=== PATIENT | male | born 1945 | race African-American/Black ===

== ENCOUNTER 2018-12-23 07:26 | Day surgery (SDC) | payer MEDICARE ==
[2018-12-22 09:15] VITALS: BMI 29.9
--- NOTE | 2018-12-22 13:34 | HP ---
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 This has began when he was doing some shoveling and felt some discomfort. On exam, he was appreciated to have a left inguinal hernia on standing and increasing on Valsalva. His testicles are normal. Of note, he has had previous bilateral inguinal hernia repairs in the and . He does not recall whether mesh was used. Plan is for robot mesh repair for recurrent left inguinal hernia. He understands risks and benefits, consents. ALLERGIES: NONE. HABITS: Tobacco, none. Alcohol, none. MEDICATIONS: 1. Metoprolol/hydrochlorothiazide 100/25 one half pill daily. 2. Lipitor 40 mg a day. PAST SURGICAL HISTORY: Bilateral inguinal hernia repairs in 1964 and . He does not recall if mesh was used. PAST MEDICAL HISTORY: Chronic low back pain, hypertension, and elevated lipids. REVIEW OF SYSTEMS: Ten-point noncontributory. Cardiac, noncontributory. PHYSICAL EXAMINATION: VITAL SIGNS: Weight 211 pounds, 5 foot 11 inches, 29 BMI, blood pressure 143/83, heart rate 79, temperature 97.2 degrees. HEAD, EYES, EARS, NOSE, AND THROAT: Unremarkable. LUNGS: Clear to auscultation. CARDIAC: Regular rate and rhythm. No murmur or gallop. ABDOMEN: Soft and nontender. Scars in both groins from past bilateral inguinal hernia repairs. EXTREMITIES: Unremarkable. No ankle edema. : Testicles normal bilaterally. On standing, right groin hernia repair intact. Left groin reveals hernia on standing, increases in the Valsalva. ASSESSMENT AND PLAN: Left inguinal hernia recurrent. We would recommend robot mesh repair as outpatient. Risks of infection, bleeding, reoperation, blood transfusion, chronic pain discussed, questions answered. Job ID: [id number]
[2018-12-23] MEDS ORDERED: Ketorolac Tromethamine 30 MG/ML VIAL ONE (08:21)
[2018-12-23 08:52] LABS: #Eosinphils 0.1 thou/uL (0.0-0.7); #Lymphocytes 1.6 thou/uL (1.20-3.40); #Monocytes 0.5 thou/uL (0.11-0.59); #Neutrophils 3.5 thou/uL (1.40-6.50); %Basophils 0.3 % (0.0-1.0); %Eosinophils 1.5 % (0.0-10.0); %Lymphocytes 27.6 % (21.0-51.0); %Monocytes 9.1 % (0.0-10.0); %Neutrophils 61.4 % (42.0-75.0); Mean Corpuscular HGB CONC 33.5 g/dL (32.0-36.0); Mean Corpuscular Hemoglobin 28.7 pg (27.0-31.0); Mean Corpuscular Volume 85.7 fL (78.0-98.0); Mean Platelet Volume 7.5 fL (7.4-10.4); Platelet Count 169 thou/uL (130-400); RBC Distribution Width 13.3 % (11.5-14.5); Red Blood Cell (RBC) Count 5.22 mill/uL (4.70-6.10); White Blood Cell (WBC) Count 5.7 thou/uL (4.8-10.8)
[2018-12-23 09:11] LABS: Anion Gap 10 mmol/L (10-20); BUN (Urea Nitrogen) 13 mg/dL (8.4-25.7); Calc. Creatinine Clearance 89 mL/min (70-130); Calcium 9.1 mg/dL (7.8-10.44); Carbon Dioxide 26 mmol/L (23-31); Chloride 106 mmol/L (98-107); Estimated GFR-MDRD 85; Glucose 108 mg/dL (83-110); Potassium 3.6 mmol/L (3.5-5.1); Sodium 138 mmol/L (136-145)
[2018-12-23] MEDS ORDERED: Fentanyl 100 MCG/2 ML VIAL ONE (10:10)
[2018-12-23] MEDS ORDERED: Bupivacaine HCl 0.5%/Epinephrine 1:200,000/PF 30 ml Vial ONE (10:13)
--- NOTE | 2018-12-23 18:13 | OP ---
DATE OF PROCEDURE: 12/23/2018 PREOPERATIVE DIAGNOSIS: Recurrent left inguinal hernia. POSTOPERATIVE DIAGNOSIS: Recurrent left inguinal hernia. PROCEDURE PERFORMED: Robotic large mesh repair, 3DMax, recurrent left inguinal hernia. ANESTHESIA: Local 0.5% Marcaine with epinephrine 30 mL. ANESTHESIA: General. Ugarte catheter was placed at the beginning and removed at the end. 180 mL left in the bladder to facilitate discharge. DESCRIPTION OF PROCEDURE: The patient was taken to the operating room, where under general anesthesia, abdomen was clipped of hair, prepared with ChloraPrep, and draped in routine fashion. Ugarte catheter was placed at the beginning of the procedure and removed at the end. Local 0.5% Marcaine was infiltrated in the skin and subcutaneous tissue about each port side. Left of midline supraumbilical incision was made and pneumoperitoneum to 15 mmHg was obtained with a Veress needle, replaced with an 11-mm balloon port. Laparoscope was inserted. Remainder of ports placed under laparoscopic visualization. Left and right lateral abdomen incision was made and 8-mm port was placed. Robot was docked and prepared, and robotic inguinal hernia undertaken. Attention was turned to the left groin, where clinically he had recurrent left inguinal hernia, where left inguinal hernia recurrence was acknowledged. Mesh was not visualized on either side. Incision was made from the anterior iliac spine laterally until medially on the left, dissecting the peritoneal flap, dissecting free down to the retroperitoneum, dissecting the hernia sac and lipoma of the cord free. Once this was cleared for about 8 cm in the retroperitoneum, visualizing the cord structures in his testicular artery abnormalities. After this dissection was complete and Sedrick ligament was identified, the 3DMax large mesh was inserted along with sutures and mesh properly positioned, securing the mesh to Sedrick ligament with 2-0 Vicryl and to the anterior abdominal wall to the left of the epigastric vessel using 2-0 Vicryl suture. Good hemostasis was noted, and as all counts were correct, peritoneum was reapproximated with continuous suture of 2-0 V-Loc suture. Once this was completed, there was a small defect through the peritoneum, closed with a [id number] suture of 3-0 Vicryl. Sutures and needles were removed. Good hemostasis was noted. Pneumoperitoneum was reduced. All instruments were removed. All skin incisions were approximated with interrupted subdermal 4-0 Monocryl and [place]-glue applied. Job ID: [id number]
--- NOTE | 2018-12-24 09:20 | EKG ---
Test Reason : PREOP Blood Pressure : / mmHG Vent. Rate : 064 BPM Atrial Rate : 064 BPM P-R Int : 150 ms QRS Dur : 090 ms QT Int : 422 ms P-R-T Axes : 073 038 042 degrees QTc Int : 435 ms Normal sinus rhythm Nonspecific T wave abnormality Abnormal ECG No previous ECGs available Confirmed by THONY JORDAN, DR. Soto ([id number]) on 12/24/2018 9:19:55 AM Referred By: NEREIDA Confirmed By:DR. Brittany BHANDARI MD
== END 2018-12-23 15:30 | disposition home or self-care (01) ==
LOC: SDC 07:26
PROVIDERS: ATTEND Specialist
PROC: 0YU64JZ Supplement Left Inguinal Region with Synthetic Substitute, Percutaneous Endoscopic Approach (ICD-10-PCS; principal; 2018-12-23)
DX: K40.91 Unilateral inguinal hernia, without obstruction or gangrene, recurrent (principal); I10 Essential (primary) hypertension; E78.5 Hyperlipidemia, unspecified; G89.29 Other chronic pain; M54.5 Low back pain; Z79.899 Other long term (current) drug therapy; Z98.890 Other specified postprocedural states
CPT/HCPCS: 49651; 80048; 85025; 93005; C1781; 36415; 93010; J0131; J0670; J0690; J1885; J3010

== ENCOUNTER 2019-09-21 11:13 | Inpatient (IN) | payer MEDICARE ==
[2019-09-21] MEDS ORDERED: Ondansetron PF 4 MG/2 ML Vial ONE (11:49)
[2019-09-21] MEDS ORDERED: Piperacillin/Tazobactam 4.5 GM VIAL ONE (11:49)
[2019-09-21] MEDS ORDERED: Morphine 4 MG/ML VIAL ONE (11:49)
[2019-09-21 11:53] LABS: #Lymphocytes 0.6 thou/uL (1.20-3.40); #Monocytes 0.1 thou/uL (0.11-0.59); #Neutrophils 6.7 thou/uL (1.40-6.50); %Basophils 0.1 % (0.0-1.0); %Eosinophils 0.1 % (0.0-10.0); %Lymphocytes 8.2 % (21.0-51.0); %Monocytes 1.2 % (0.0-10.0); %Neutrophils 90.6 % (42.0-75.0); Hemoglobin 16.2 g/dL (14.0-18.0); Mean Corpuscular HGB CONC 33.3 g/dL (32.0-36.0); Mean Corpuscular Hemoglobin 28.7 pg (27.0-31.0); Mean Corpuscular Volume 86.2 fL (78.0-98.0); Mean Platelet Volume 7.9 fL (7.4-10.4); Platelet Count 157 thou/uL (130-400); RBC Distribution Width 13.3 % (11.5-14.5); Red Blood Cell (RBC) Count 5.63 mill/uL (4.70-6.10); White Blood Cell (WBC) Count 7.3 thou/uL (4.8-10.8)
[2019-09-21 12:16] LABS: ALT (SGPT) 20 U/L (8-55); AST (SGOT) 27 U/L (5-34); Albumin 3.9 g/dL (3.4-4.8); Alkaline Phosphatase 72 U/L (40-110); Anion Gap 15 mmol/L (10-20); BUN (Urea Nitrogen) 16 mg/dL (8.4-25.7); Bilirubin, Total 0.9 mg/dL (0.2-1.2); Calc. Creatinine Clearance 0 mL/min (70-130); Calcium 8.9 mg/dL (7.8-10.44); Carbon Dioxide 22 mmol/L (23-31); Chloride 103 mmol/L (98-107); Estimated GFR-MDRD 81; Globulin 3.6 g/dL (2.4-3.5); Glucose 120 mg/dL (83-110); Lipase 28 U/L (8-78); Potassium 3.8 mmol/L (3.5-5.1); Protein, Total 7.5 g/dL (5.8-8.1); Sodium 136 mmol/L (136-145)
--- NOTE | 2019-09-21 12:17 | RAD ---
Chest AP view INDICATION: Altered mental status COMPARISON: None FINDINGS: Lungs: Low lung volumes Cardiac silhouette: The cardiomediastinal silhouette appears within normal limits. Pulmonary vasculature: Normal Pleural spaces: No pleural effusion or pneumothorax is demonstrated. Upper abdomen: No abnormality seen. Osseous structures: No acute osseous abnormality. Additional findings: None. IMPRESSION: Low lung volumes. No definite acute abnormality.
--- NOTE | 2019-09-21 12:46 | CT ---
CT OF THE ABDOMEN AND PELVIS WITH IV CONTRAST INDICATION: Abdominal Pain COMPARISON: None FINDINGS: ABDOMEN: Lung bases: There is bibasilar atelectasis Liver: There is a 6 mm hypodensity within the segments of the right hepatic lobe that cannot be furth er characterize. No additional focal hepatic lesion is evident. Gallbladder: Mildly distended Pancreas: Normal. Adrenal glands: Normal. Spleen: Normal. Kidneys and ureters: Normal. No hydronephrosis. Vasculature: There are moderate vascular calcifications seen involving the visualized vasculature. Lymph nodes:No lymphadenopathy. Free fluid in abdomen:Small amount of free fluid is seen within the lower abdomen and pelvis PELVIS: Small and large bowel: There is scattered colonic diverticula. There is a mild edematous changes invo lving the omentum. There is mild suggested wall thickening involving portions of the sigmoid colon. Appendix:Normal Bladder: Normal. Rectal and perirectal soft tissues:Normal. Reproductive structures: Prostate is mildly enlarged measuring 5.4 cm Free fluid in pelvis: Mild free fluid in the pelvis Lymphadenopathy pelvis: No lymphadenopathy is evident. Osseous structures: Prostate no fracture there is a remote appearing superior endplate compression fr acture of L2. There is scattered degenerative and osteoarthritic changes. Soft tissues:Normal. IMPRESSION: 1. Nonspecific mild free fluid in the abdomen and pelvis with some mild edematous changes involving t he omentum. 2. Colonic diverticulosis with mild suggested wall thickening involving the sigmoid colon. A componen t of mild colitis cannot be entirely excluded. 3. Too small to characterize right hepatic lobe hypodensity.
--- NOTE | 2019-09-21 13:15 | PDOC.FPRHP ---
- History of Present Illness Chief Complaint: abdominal pain History of Present Illness: This is a 74yo M who presented to the ER with a CC of abdominal pain that started earlier today. Reports pain is 6/10 and worse in the lower abdomen. Reports pain is constant since this morning at 5am. He endorses nausea and vomiting x 4 today. No blood noted in emesis. Denies any blood in stool. Patient states he had a colonoscopy 3-4years ago that showed polyps that were non cancerous. He also noted that they found diverticula on that colonoscopy too. Endorses fever/chills. Denies changes in urine. Denies diarrhea and constipation. Had a BM this morning that was normal. Denies chest pain, palpitations, SOB, LE edema, vision changes. Denies changes in appetite. ED Course: 1L NS, 4.5g zosyn, 8mg morphin, 8mg zofran CT showing wall thickening in sigmoid colon, diverticulosis CXR nml - Allergies/Adverse Reactions Allergies Allergy/AdvReac Type Severity Reaction Status Date / Time No Known Allergies Allergy Verified 12/22/18 09:15 - Home Medications Medication Instructions Recorded Confirmed Type Atorvastatin Calcium [Lipitor] 1 tab PO HS 12/22/18 09/21/19 History Metoprolol/Hydrochlorothiazide 0.5 tab PO DAILY 12/22/18 09/21/19 History [Metoprolol-Hctz 100-25 mg Tab] - History PMHx: HLD, HTN PSHx: Hernia surgery FHx: Mom - BP Social: Denies tobacco or drug use; occasional alcohol use; previous cigarette smoker - 1pack/day for 40 years - Review of Systems General: denies: fever/chills, weight/appetite/sleep changes, night sweats, fatigue Eyes: denies: vision changes ENT: denies: nasal congestion Respiratory: denies: cough, congestion, shortness of breath, exercise intolerance Cardiovascular: denies: chest pain, palpitation, edema Gastrointestinal: reports: nausea, vomiting, abdominal pain (crampy-like). denies: diarrhea, constipation Genitourinary: denies: dysuria Skin: denies: rashes Musculoskeletal: denies: pain Neurological: denies: weakness - Vital signs BP: 130/74, Pulse: 119, Resp: 27, Pain: 6, O2 sat: 94 on (Room Air), Time: 2019 12:02. Weight 100kg BP: 115/86, Pulse: 123, Resp: 28, Temp: 98.2 (Oral), Pain: 6, O2 sat: 94 on ( Room Air), Time: 09/21/2019 11:24. - Physical Exam Constitutional: NAD, awake, alert and oriented, well developed HEENT: normocephalic and atraumatic, PERRLA, EOMI, grossly normal vision, grossly normal hearing, MMM Neck: supple Chest: no-tender to palpation Heart: RRR, normal S1/S2, no murmurs/rubs/gallops Lungs: CTAB, no respiratory distress, good air movement, no wheezing, no retractions Abdomen: soft -Abdomen: TTP in RLQ/LLQ, rebound tenderness, neg bruner sign Musculoskeletal: normal structure Neurological: no focal deficit Skin: no rash/lesions, good turgor, capillary refill <2 seconds Heme/Lymphatic: no unusual bruising or bleeding, no purpura, no petechia Psychiatric: normal mood and affect FMR H&P: Results - Labs Result Diagrams: 09/21/19 11:39 09/21/19 11:39 Lab results: WBC 7.3 thou/uL (4.8-10.8) 09/21/19 11:39 Hgb 16.2 g/dL (14.0-18.0) 09/21/19 11:39 Hct 48.5 % (42.0-52.0) 09/21/19 11:39 MCV 86.2 fL (78.0-98.0) 09/21/19 11:39 Plt Count 157 thou/uL (130-400) 09/21/19 11:39 Neutrophils % 90.6 % (42.0-75.0) H 09/21/19 11:39 Sodium 136 mmol/L (136-145) 09/21/19 11:39 Potassium 3.8 mmol/L (3.5-5.1) 09/21/19 11:39 Chloride 103 mmol/L (98-107) 09/21/19 11:39 Carbon Dioxide 22 mmol/L (23-31) L 09/21/19 11:39 BUN 16 mg/dL (8.4-25.7) 09/21/19 11:39 Creatinine 1.08 mg/dL (0.7-1.3) 09/21/19 11:39 Glucose 120 mg/dL (83-110) H 09/21/19 11:39 Lactic Acid 3.7 mmol/L (0.5-2.2) H 09/21/19 11:39 Calcium 8.9 mg/dL (7.8-10.44) 09/21/19 11:39 Total Bilirubin 0.9 mg/dL (0.2-1.2) 09/21/19 11:39 AST 27 U/L (5-34) 09/21/19 11:39 ALT 20 U/L (8-55) 09/21/19 11:39 Alkaline Phosphatase 72 U/L (40-110) 09/21/19 11:39 Serum Total Protein 7.5 g/dL (5.8-8.1) 09/21/19 11:39 Albumin 3.9 g/dL (3.4-4.8) 09/21/19 11:39 Lipase 28 U/L (8-78) 09/21/19 11:39 - Radiology Interpretation CT scan - abdomen Status: report reviewed by me (nonspecific mild free fluid in the abd and pelvis with some mild edematous changes involving the omentum; colonic diverticulosis with mild wall thickening involving the sigmoid colon) FMR H&P: A/P - Problem List (1) Diverticulosis of colon Current Visit: Yes Status: Acute Code(s): K57.30 - DVRTCLOS OF LG INT W/O PERFORATION OR ABSCESS W/O BLEEDING (2) Hyperlipidemia Current Visit: Yes Status: Acute Code(s): E78.5 - HYPERLIPIDEMIA, UNSPECIFIED - Plan 74 yo Male admitted for: Sepsis 2/2 Diverticulitis - fluid resuscitate - trend lactate - CT abdomen results as above. No evidence of perforation. Free fluid in abdomen. - 1st episode of diverticulitis. Medical mgmt - zosyn IVPB - zofran for nausea - tylenol for pain and fever - morphine IV for pain HTN - hold HTN meds today since hypotensive - resume when BP improves HLD - may continue statin Code: full Fluids: LR at VTE ppx: lovenox 40 GI ppx: pepcid bid IV Diet: NPO, meds w/ sips Disposition/LOS: admit to inpatient medical. LOS >48H. FMR H&P: Upper Level - Plan Date/Time: 09/21/19 1313 I, Kirsten Lisa MD, have evaluated this patient and agree with findings/plan as outlined by internet site designer resident. Pertinent changes/additions are listed here. HPI: this is a 74yo M with known colonic diverticula from a previous colonoscopy and CT performed here who presents to the ER with a CC of abdominal pain. Onset this morning at 5am, pain is crampy like, mostly in lower abd and associated with NV. He was able to keep down some fluid this morning. He endorses fever/chills. Denies constipation or diarrhea. Jonathan chest pain or palpitations. States that he has never had pain like this before. Denies any blood in his emesis or stool. Denies changes in appetite over the last few days. No hx of colon cancer in the family. Patient is a former smoker, occasional alcohol drinker. See internet site designer note for full HPI and histories. PE: General: mild distress due to pain Cardio: RRR, no murmurs Resp: CTAB Abd: minimal BS, TTP in lower abdomen R/LLQs MSK: FROM, no edema in LE Psych: Axox3 Plan: Sepsis 2/2 Diverticulitis, poa Patient tachycardic, tachypneic and elevated lactate on admission. CT showing wall thickening in the sigmoid colon, diverticula. Per patient, recent colonoscopy positive for diverticula and polyps. - admit to medical - Continue IVF, slightly above maintenance - LR @ 150ml/hr. Keep NPO with ice chips for now and can consider advancing as tolerated if pain subsides. - Continue morphine for pain control and switch to oral analgesics when capable - Continue zosyn IV q6hr - Blood and urine cx pending, procal pending - Tylenol PRN for fever HTN - aware, continue home meds; will continue to monitor HLD - aware, continue statin Code: Full Diet: NPO and advance as tolerated VTE: lovenox Dispo: admit to medical, inpt Case discussed with Dr. Centeno Addendum - Attending - Attending Attestation Date/Time: 09/21/19 9665 I personally evaluated the patient and discussed the management with the team. I agree with the History, Examination, Assessment and Plan documented above with any addition or exceptions noted below. The patient was joking with his SO when I arrived. Mild TTP in BLQ. Continue antibiotics, await cultures, monitor abd exam.
[2019-09-21] MEDS ORDERED: Acetaminophen 500 MG TAB ONE (13:34)
[2019-09-21] MEDS ORDERED: Ondansetron ODT 4 MG TAB PO PRN (13:50)
[2019-09-21 14:24] VITALS: BMI 30.9
[2019-09-21] MEDS ORDERED: Iopamidol-370 76% 500 ML 1 ML ONE (14:29)
[2019-09-21] MEDS ORDERED: Enoxaparin Sodium 40 MG/0.4 ML SYRINGE SC SCH (14:30)
[2019-09-21 14:45] LABS: Bilirubin Negative (Negative); Blood, Urine Negative (Negative); Clarity Clear (Clear); Glucose, Urine (Dipstick) Normal (Negative); Leukocyte Negative Leu/uL (Negative); Nitrite Negative (Negative); Protein, Urine (Dipstick) Negative (Neg-Trace); Urobilinogen Normal mg/dL (Less than 2)
[2019-09-21] MEDS ORDERED: Lactated Ringer's 1,000 ML IV SCH (15:15)
[2019-09-21 15:24] LABS: Lactic Acid 2.7 mmol/L (0.5-2.2)
[2019-09-21] MEDS: Lactated Ringer's 1,000 ML IV SCH ×2 (15:25→23:24)
[2019-09-21] MEDS: Acetaminophen 325 MG TAB PO PRN (15:28)
[2019-09-21] MEDS: Piperacillin/Tazobactam 3.375 GM in Sodium Chloride 0.9% 100 ML IVPB SCH ×2 (17:32→23:26)
[2019-09-21] MEDS: Famotidine/PF 20 mg/2ml Vial SLOW IVP SCH (20:09)
[2019-09-22] MEDS: Acetaminophen 325 MG TAB PO PRN ×4 (01:19→21:51)
[2019-09-22] MEDS: Piperacillin/Tazobactam 3.375 GM in Sodium Chloride 0.9% 100 ML IVPB SCH ×4 (05:13→23:31)
[2019-09-22] MEDS: Lactated Ringer's 1,000 ML IV SCH ×4 (05:13→23:31)
--- NOTE | 2019-09-22 05:34 | PDOC.FM ---
- Subjective Subjective: Patient doing well this morning. Tolerated fluids well last night. Discussed slowly advancing his diet today, patient agreeable. - Objective Vital Signs & Weight: Vital Signs (12 hours) Temp Pulse Resp BP Pulse Ox 09/22/19 04:15 97.8 F 76 18 96/60 93 L 09/22/19 00:33 98.5 F 78 18 98/62 96 09/21/19 22:37 94 L 09/21/19 19:34 99.3 F 95 18 90/58 L 94 L Weight Weight 100.698 kg Result Diagrams: 09/22/19 05:25 09/22/19 05:25 Phys Exam - Physical Examination Constitutional: NAD HEENT: moist MMs, sclera anicteric Neck: supple, full ROM Respiratory: no wheezing, clear to auscultation bilateral Cardiovascular: RRR, no significant murmur Gastrointestinal: soft, positive bowel sounds ttp throughout the abdomen Musculoskeletal: no edema, pulses present Neurological: normal sensation, moves all 4 limbs Lymphatic: no nodes Psychiatric: normal affect Skin: no rash, normal turgor Dx/Plan (1) Sepsis Code(s): A41.9 - SEPSIS, UNSPECIFIED ORGANISM Status: Acute (2) Diverticulitis Code(s): K57.92 - DVTRCLI OF INTEST, PART UNSP, W/O PERF OR ABSCESS W/O BLEED Status: Acute (3) Diverticulosis of colon Code(s): K57.30 - DVRTCLOS OF LG INT W/O PERFORATION OR ABSCESS W/O BLEEDING Status: Chronic (4) Hyperlipidemia Code(s): E78.5 - HYPERLIPIDEMIA, UNSPECIFIED Status: Chronic (5) HTN (hypertension) Code(s): I10 - ESSENTIAL (PRIMARY) HYPERTENSION Status: Acute - Plan Plan: 74M with PMHx of HTN and HLD admitted for: #Sepsis 2/2 Diverticulitis - fluid resuscitated - lactic 3.7>2.7 - CT abdomen results: non-specific mild free fluid, edematous changes in omentum , colonic diverticulosis with mild wall thickening in sigmoid colon. No evidence of perforation. - 1st episode of diverticulitis. Will continue medical management at this time - zosyn IVPB - zofran for nausea - tylenol for pain and fever - morphine IV for pain - will continue to advance diet as tolerated today. #HTN - continue to hold HTN meds today since hypotensive - resume when BP improves #HLD - continue statin Fluids: LR at 150ml/hr VTE ppx: lovenox 40 GI ppx: pepcid bid IV Diet: NPO, meds w/ sips Disposition: admitted to inpatient medical. Continue IVF and abx today. Will advance diet as tolerated Code: Full
[2019-09-22 05:54] LABS: Mean Corpuscular HGB CONC 33.3 g/dL (32.0-36.0); Mean Corpuscular Hemoglobin 28.9 pg (27.0-31.0); Mean Corpuscular Volume 86.6 fL (78.0-98.0); Platelet Count 138 thou/uL (130-400); RBC Distribution Width 13.4 % (11.5-14.5); White Blood Cell (WBC) Count 14.6 thou/uL (4.8-10.8)
[2019-09-22 06:10] LABS: Anion Gap 9 mmol/L (10-20); BUN (Urea Nitrogen) 17 mg/dL (8.4-25.7); Calc. Creatinine Clearance 80 mL/min (70-130); Calcium 7.8 mg/dL (7.8-10.44); Carbon Dioxide 26 mmol/L (23-31); Chloride 106 mmol/L (98-107); Estimated GFR-MDRD 74; Glucose 92 mg/dL (83-110); Potassium 3.8 mmol/L (3.5-5.1); Sodium 137 mmol/L (136-145)
[2019-09-22 06:22] LABS: Band 32 % (5-11); Lymphocytes 7 % (21-51); MDiff Complete? YES; Monocytes 4 % (0-10); Neutrophil 57 % (42-75); Platelet Morphology Comment Appears Adequate
[2019-09-22] MEDS: Enoxaparin Sodium 40 MG/0.4 ML SYRINGE SC SCH (08:32)
[2019-09-22] MEDS: Famotidine/PF 20 mg/2ml Vial SLOW IVP SCH ×2 (08:32→21:51)
--- NOTE | 2019-09-22 12:07 | PRG ---
DATE OF SERVICE: 09/22/2019 Mr. Gamboa is a pleasant 74-year-old man who was admitted with acute diverticulitis. He has been started on antibiotics and fluids and is feeling better. He is currently afebrile but slightly hypotensive. He is awake and alert. Job ID: [id number]
[2019-09-22] MEDS: Morphine 2 MG/ML SYRINGE SLOW IVP PRN (13:41)
[2019-09-23] MEDS: Acetaminophen 325 MG TAB PO PRN ×4 (04:08→20:19)
[2019-09-23] MEDS: Piperacillin/Tazobactam 3.375 GM in Sodium Chloride 0.9% 100 ML IVPB SCH (05:31)
--- NOTE | 2019-09-23 05:40 | PDOC.FM ---
- Subjective Subjective: Patient doing okay this morning. Tolerated full liquid diet well yesterday. Abdomen continues to be ttp throughout. He reports a few watery stools yesterday afternoon, with one well-formed stool yesterday morning. - Objective Vital Signs & Weight: Vital Signs (12 hours) Temp Pulse Resp BP Pulse Ox 09/23/19 04:54 99.9 F H 109 H 18 151/91 H 91 L 09/23/19 00:00 100.6 F H 108 H 20 132/83 93 L 09/22/19 20:00 100.6 F H 114 H 20 131/82 93 L Weight Weight 100.698 kg I&O: 09/21/19 09/22/19 09/23/19 06:59 06:59 06:59 Intake Total 1350 Balance 1350 Result Diagrams: 09/23/19 06:00 09/23/19 06:00 Phys Exam - Physical Examination Constitutional: NAD HEENT: moist MMs, sclera anicteric Neck: supple, full ROM Respiratory: no wheezing, clear to auscultation bilateral Cardiovascular: RRR, no significant murmur Gastrointestinal: soft ttp throughout, moreso on Left side Musculoskeletal: no edema, pulses present Neurological: non-focal, moves all 4 limbs Psychiatric: normal affect, A&O x 3 Skin: no rash, normal turgor Dx/Plan (1) Sepsis Code(s): A41.9 - SEPSIS, UNSPECIFIED ORGANISM Status: Acute (2) Diverticulitis Code(s): K57.92 - DVTRCLI OF INTEST, PART UNSP, W/O PERF OR ABSCESS W/O BLEED Status: Acute (3) Diverticulosis of colon Code(s): K57.30 - DVRTCLOS OF LG INT W/O PERFORATION OR ABSCESS W/O BLEEDING Status: Chronic (4) Hyperlipidemia Code(s): E78.5 - HYPERLIPIDEMIA, UNSPECIFIED Status: Chronic (5) HTN (hypertension) Code(s): I10 - ESSENTIAL (PRIMARY) HYPERTENSION Status: Acute - Plan Plan: 74M with PMHx of HTN and HLD admitted for: #Sepsis 2/2 Diverticulitis - fluid resuscitated - lactic 3.7>2.7>1.0 - CT abdomen results: non-specific mild free fluid, edematous changes in omentum , colonic diverticulosis with mild wall thickening in sigmoid colon. No evidence of perforation. - 1st episode of diverticulitis. Will continue medical management at this time - fever and some tachycardia overnight though clinical picture remains the same ; can consider re-imaging today if he does not improve - Blood cultures ngtd, will continue to follow - zosyn IVPB - zofran for nausea - tylenol for pain and fever - morphine IV for pain - will continue to advance diet as tolerated today. #HTN - BP has improved, will restart home meds today #HLD - continue statin Fluids: LR at 150ml/hr VTE ppx: lovenox 40 GI ppx: pepcid bid IV Diet: Full liquids Disposition: admitted to inpatient medical. Continue IVF and abx today. Will advance diet as tolerated Code: Full Addendum - Attending - Attending Attestation Date/Time: 09/23/19 [id number] I personally evaluated the patient and discussed the management with Dr. Hernandez. I agree with the History, Examination, Assessment and Plan documented above with any addition or exceptions noted below. Patient improved. Pain improved. COntinue abx for diverticulitis. Pain control and IV fluids as needed. Fever curve downtrending. Add diet once pain tolerable. Will restart BP meds to get tachycardia under control.
[2019-09-23 06:11] LABS: #Lymphocytes 0.7 thou/uL (1.20-3.40); #Monocytes 0.3 thou/uL (0.11-0.59); #Neutrophils 11.2 thou/uL (1.40-6.50); %Basophils 0.2 % (0.0-1.0); %Eosinophils 0.1 % (0.0-10.0); %Lymphocytes 5.5 % (21.0-51.0); %Monocytes 2.8 % (0.0-10.0); %Neutrophils 91.5 % (42.0-75.0); Hemoglobin 13.4 g/dL (14.0-18.0); Mean Corpuscular HGB CONC 33.7 g/dL (32.0-36.0); Mean Corpuscular Hemoglobin 29.3 pg (27.0-31.0); Mean Corpuscular Volume 86.9 fL (78.0-98.0); Platelet Count 127 thou/uL (130-400); RBC Distribution Width 13.2 % (11.5-14.5); Red Blood Cell (RBC) Count 4.59 mill/uL (4.70-6.10); White Blood Cell (WBC) Count 12.2 thou/uL (4.8-10.8)
[2019-09-23 06:32] LABS: Anion Gap 9 mmol/L (10-20); BUN (Urea Nitrogen) 10 mg/dL (8.4-25.7); Calc. Creatinine Clearance 97 mL/min (70-130); Calcium 8.4 mg/dL (7.8-10.44); Carbon Dioxide 24 mmol/L (23-31); Chloride 108 mmol/L (98-107); Estimated GFR-MDRD Greater than 90; Glucose 94 mg/dL (83-110); Potassium 3.7 mmol/L (3.5-5.1); Sodium 137 mmol/L (136-145)
[2019-09-23] MEDS: Lactated Ringer's 1,000 ML IV SCH ×4 (07:19→20:11)
[2019-09-23] MEDS: Famotidine/PF 20 mg/2ml Vial SLOW IVP SCH ×2 (08:23→20:10)
[2019-09-23] MEDS: Enoxaparin Sodium 40 MG/0.4 ML SYRINGE SC SCH (08:23)
[2019-09-23] MEDS: Metoprolol Tartrate 50 MG TAB PO SCH (08:27)
[2019-09-23] MEDS: Hydrochlorothiazide 25 MG TAB PO SCH (08:27)
[2019-09-23] MEDS ORDERED: Lactated Ringer's 1,000 ML IV SCH (09:30)
[2019-09-23] MEDS: cefTRIAXone\\ROCEPHIN 2 GM in Sodium Chloride 0.9% 100 ML IVPB SCH (09:56)
[2019-09-23] MEDS: metroNIDAZOLE 500 MG in Premix Bag 1 BAG IVPB SCH ×2 (11:39→18:00)
[2019-09-23] MEDS ORDERED: metroNIDAZOLE 500 MG in Premix Bag 1 BAG IVPB SCH (14:00)
[2019-09-23] MEDS: Morphine 2 MG/ML SYRINGE SLOW IVP PRN (22:43)
[2019-09-24] MEDS: metroNIDAZOLE 500 MG in Premix Bag 1 BAG IVPB SCH ×3 (04:34→17:37)
[2019-09-24] MEDS: Lactated Ringer's 1,000 ML IV SCH ×4 (04:38→23:04)
[2019-09-24] MEDS: Morphine 2 MG/ML SYRINGE SLOW IVP PRN ×2 (04:39→17:14)
--- NOTE | 2019-09-24 05:47 | PDOC.FM ---
- Subjective Subjective: Patient febrile overnight, Tmax yesterday 101.3F. Patient tolerated his diet well yesterday, was able to eat creamy potato soup without additional abdominal discomfort. Reports his pain is somewhat improved today, though does feel bloated. Reports of a few BM yesterday, loose. - Objective Vital Signs & Weight: Vital Signs (12 hours) Temp Pulse Resp BP BP Pulse Ox 09/24/19 03:00 99.5 F 95 20 142/85 H 93 L 09/23/19 22:47 100.7 F H 96 156/95 H 92 L 09/23/19 20:00 93 L 09/23/19 19:25 100.3 F H 97 20 143/88 H 93 L 09/23/19 17:45 101.3 F H 101 H 18 136/71 94 L Weight Weight 100.698 kg I&O: 09/22/19 09/23/19 09/24/19 06:59 06:59 07:59 Intake Total 1350 3300 Output Total 200 Balance 1350 3100 Result Diagrams: 09/24/19 05:33 09/24/19 05:33 Phys Exam - Physical Examination Constitutional: NAD HEENT: moist MMs, sclera anicteric Neck: supple, full ROM Respiratory: no wheezing, clear to auscultation bilateral Cardiovascular: RRR, no significant murmur Gastrointestinal: soft, positive bowel sounds ttp R abd; distention Musculoskeletal: no edema, pulses present Neurological: non-focal, moves all 4 limbs Psychiatric: normal affect, A&O x 3 Skin: no rash, normal turgor Dx/Plan (1) Sepsis Code(s): A41.9 - SEPSIS, UNSPECIFIED ORGANISM Status: Acute (2) Diverticulitis Code(s): K57.92 - DVTRCLI OF INTEST, PART UNSP, W/O PERF OR ABSCESS W/O BLEED Status: Acute (3) Diverticulosis of colon Code(s): K57.30 - DVRTCLOS OF LG INT W/O PERFORATION OR ABSCESS W/O BLEEDING Status: Chronic (4) Hyperlipidemia Code(s): E78.5 - HYPERLIPIDEMIA, UNSPECIFIED Status: Chronic (5) HTN (hypertension) Code(s): I10 - ESSENTIAL (PRIMARY) HYPERTENSION Status: Acute - Plan Plan: 74M with PMHx of HTN and HLD admitted for: #Sepsis 2/2 Diverticulitis - fluid resuscitated - lactic 3.7>2.7>1.0 - CT abdomen results: non-specific mild free fluid, edematous changes in omentum , colonic diverticulosis with mild wall thickening in sigmoid colon. No evidence of perforation. - 1st episode of diverticulitis. Will continue medical management at this time - fever and some tachycardia overnight though clinical picture has improved somewhat with improved abdominal pain and ability to tolerate full liquid diet without additional abdominal discomfort - patient is having some abdominal bloating and distention; simethicone added - Blood cultures ngtd, will continue to follow - Patient had fever overnight, repeat blood cultures were drawn; will follow - zosyn IVPB transitioned to rocephin and flagyl / - zofran for nausea - tylenol for pain and fever - morphine IV for pain - will continue to advance diet as tolerated today. #HTN - Continue home meds #HLD - continue statin Fluids: LR at 150ml/hr VTE ppx: lovenox 40 GI ppx: pepcid bid IV Diet: Full liquids Disposition: admitted to inpatient medical. Continue IVF and abx today. Simethicone for abdominal distention. Will advance diet as tolerated Code: Full Addendum - Attending - Attending Attestation Date/Time: 09/24/19 5543 I personally evaluated the patient and discussed the management with Dr. Hernandez. I agree with the History, Examination, Assessment and Plan documented above with any addition or exceptions noted below.
[2019-09-24 06:14] LABS: Band 7 % (5-11); Hemoglobin 13.7 g/dL (14.0-18.0); Lymphocytes 5 % (21-51); MDiff Complete? YES; Mean Corpuscular HGB CONC 33.4 g/dL (32.0-36.0); Mean Corpuscular Hemoglobin 29.1 pg (27.0-31.0); Mean Corpuscular Volume 87.2 fL (78.0-98.0); Mean Platelet Volume 8.3 fL (7.4-10.4); Monocytes 4 % (0-10); Neutrophil 84 % (42-75); Platelet Count 150 thou/uL (130-400); Platelet Morphology Comment Appears Adequate; RBC Morphology Normal; Red Blood Cell (RBC) Count 4.71 mill/uL (4.70-6.10); White Blood Cell (WBC) Count 14.3 thou/uL (4.8-10.8)
[2019-09-24 06:19] LABS: Anion Gap 10 mmol/L (10-20); BUN (Urea Nitrogen) 9 mg/dL (8.4-25.7); Calc. Creatinine Clearance 98 mL/min (70-130); Calcium 8.8 mg/dL (7.8-10.44); Carbon Dioxide 23 mmol/L (23-31); Chloride 107 mmol/L (98-107); Estimated GFR-MDRD Greater than 90; Glucose 93 mg/dL (83-110); Sodium 136 mmol/L (136-145)
[2019-09-24] MEDS ORDERED: Simethicone Chewable 80 MG TAB PO SCH (07:04)
[2019-09-24] MEDS: Ondansetron PF 4 MG/2 ML Vial IVP PRN ×3 (08:00→23:04)
[2019-09-24] MEDS: cefTRIAXone\\ROCEPHIN 2 GM in Sodium Chloride 0.9% 100 ML IVPB SCH (09:02)
[2019-09-24] MEDS: Hydrochlorothiazide 25 MG TAB PO SCH ×2 (09:02→17:36)
[2019-09-24] MEDS: Metoprolol Tartrate 50 MG TAB PO SCH ×2 (09:03→17:37)
[2019-09-24] MEDS: Acetaminophen 325 MG TAB PO PRN (09:03)
[2019-09-24] MEDS: Famotidine/PF 20 mg/2ml Vial SLOW IVP SCH ×2 (09:04→21:34)
[2019-09-24] MEDS: Enoxaparin Sodium 40 MG/0.4 ML SYRINGE SC SCH (09:09)
--- NOTE | 2019-09-24 12:50 | CT ---
CT ABDOMEN WITH CONTRAST CT PELVIS WITH CONTRAST: DATE: 09/24/2019 HISTORY: 74-year-old male with abdominal pain, abdominal distention, and nausea. COMPARISON: 09/21/2019 TECHNIQUE: IV injection of iodinated contrast media: administered. Oral contrast media:Administered FINDINGS: New finding of dilation of most of the small bowel loops and distention of the stomach. Distal ileum is collapsed. Twisting of mesentery in the right midabdomen. Previously, there was a small amount of free fluid in the right lower quadrant spilling into the pelv ic cavity. Currently, there is diffuse edema throughout the mid and lower mesentery, with similar small amount o f free fluid in the pelvis posterior to the bladder. Large number of diverticula throughout the descending and sigmoid colon. No convincing evidence of diverticulitis. Entire descending and sigmoid colon are collapsed. There is air and fluid in right: And transverse colon. No pneumoperitoneum. New small bilateral pleural effusions with adjacent passive atelectasis. Hepatic steatosis. No other abnormality of liver, kidneys, pancreas, adrenals, spleen, or urinary bladder. Appendix is up to 7 mm thick. It is probably secondarily involved by the adjacent small amount of neal e fluid and edema.. IMPRESSION: 1. Suspicious for partial small bowel obstruction. 2. Small pleural effusions.
[2019-09-24] MEDS ORDERED: Iopamidol-370 76% 500 ML 1 ML ONE (14:32)
--- NOTE | 2019-09-24 18:29 | CON ---
DATE OF CONSULTATION: 09/24/2019 REQUESTING PHYSICIAN: Amna Santiago MD HISTORY: A 74-year-old man presented to Emergency Department three days previously complaining of insidious onset of lower abdominal pain, which started approximately 0600 hours. The pain intensifies to 8/10. As a result, the patient presented to Emergency Department. Although, he denies any fevers or chills. He has had multiple episodes of nausea and 2 bouts of bilious emesis today. He initially was able to tolerate clear liquid diet yesterday and a bowel movement, he is currently not passing any flatus. PAST MEDICAL HISTORY: Pertinent for essential hypertension and hyperlipidemia. PAST SURGICAL HISTORY: Pertinent for bilateral inguinal herniorrhaphies . FAMILY HISTORY: Notable for essential hypertension in his mother and father with worried, I think it is rectal carcinoma. 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 He had a distant history of tobacco use equivalent of 1 pack per day for 40 years. He denies any ethanol or illicit drug abuse. PRE-HOSPITAL MEDICATIONS: Includes: 1. Metoprolol/hydrochlorothiazide combination 100/25 mg p.o. daily. 2. Atorvastatin 10 mg p.o. at bedtime. REVIEW OF SYSTEMS: Ten-point review of systems essentially unremarkable except as stated in past medical history and chief complaint. PHYSICAL EXAMINATION: GENERAL: This revealed a 74-year-old normally developed man, who is otherwise coherent and interactive and appears stated age. The patient is alert and oriented x3, appears to be in no acute distress at time of my evaluation. VITAL SIGNS: Currently includes blood pressure 122/76, pulse 107, respiratory rate is 19, maximum temperature in last 24 hours is 101.3 degrees Fahrenheit, and oxygen saturation 95% on room air. HEENT: Reveals normocephalic and atraumatic. NECK: He has no jugular venous distention noted. HEART: Reveals regular rate with sinus tachycardia. No murmurs or gallops auscultated. LUNGS: Clear to auscultation bilaterally. Breathing, regular and unlabored. ABDOMEN: Soft, moderately distended, and tender to palpation. He has no rebound tenderness present. Liver and spleen otherwise nonpalpable below costal margin. NEUROLOGIC: Reveals no focal deficits present. LABORATORY FINDINGS: Today includes a CBC with 14,300 white blood cells, which is up from 12,200 yesterday, hemoglobin and hematocrit are 13.7 and 41.1 respectively and stable, platelet count is also stable at 150,000. Metabolic profile; sodium 136, potassium 4.0, chloride is 107, bicarb is 23, BUN 9, creatinine 0.96, and glucose is 93. I have personally reviewed the CT scan of the abdomen and pelvis obtained three days ago, which is remarkable for diverticulosis coli with slight sigmoid colonic wall thickening and nondiscrete free fluid within the peritoneal cavity with no pneumoperitoneum present. A followup CT scan, which was obtained today also reveals multiple distended loops of small bowel with air-fluid levels as well as more fat stranding within the omentum and sigmoid colonic wall thickening also noted. There is a slightly increased and free intraperitoneal fluid present. No pneumoperitoneum is evident. IMPRESSION: Acute sigmoid colon diverticulitis with partial small bowel. RECOMMENDATION: Bowel rest with IV hydration and broad-spectrum antibiotic therapy. The patient is to increase activity liberally. There is no acute surgical indication for this patient at this time. He will require long-term antibiotic therapy of fluoroquinolone and metronidazole for approximately two weeks beyond this hospitalization after which he follows up with his Gastroenterology for a repeat lower endoscopy. Ultimately, the patient will require elective sigmoidectomy and primary anastomosis to treat his diverticulosis coli, which he has known present for many years now. Above findings and recommendation has been discussed with the patient and his at bedside in the presence of his nurse. He indicates understanding of information given. I have answered their questions. Thank you again, Dr. Santiago, for allowing me the opportunity to participate in the care of this patient. Job ID: [id number]
--- NOTE | 2019-09-24 19:16 | PDOC.BPN ---
- Brief Progress Note Patient had acute episode of vomiting after CT of abdomen/pelvis w/ IV and PO contrast. RN reported the emetis was green with a little bit of white from the contrast. Patient's pain improved after vomiting. He denied nausea but his vomiting happens without warning. Went to evaluate the patient. On exam, abdomen was mildly distended, moderately tender to palpation over RUQ and right middle area of abdomen. Bowel sounds were present but hypoactive. CT scan showed evidence of partial small bowel obstruction. Patient was made NPO and surgery was consulted. Per Surgery, ceftriaxone was discontinued and levaquin was ordered for the morning. We will continue to monitor the patient's temperature and vomiting. If he continues to vomit profusely overnight, we may consider placing an NG tube for decompression.
[2019-09-25] MEDS: metroNIDAZOLE 500 MG in Premix Bag 1 BAG IVPB SCH ×3 (03:23→17:20)
--- NOTE | 2019-09-25 05:25 | PDOC.FM ---
- Subjective Subjective: Pt doing well this morning, no acute events overnight. Had 1 BM this AM around 0430, watery. No further n/v. Passing flatus. Abd pain much improved with only mild LLQ pain. Still with bloating. No fever/chills, CP, SOB. Ambulating in room. - Objective MAR Reviewed: Yes Vital Signs & Weight: Vital Signs (12 hours) Temp Pulse Resp BP Pulse Ox 09/25/19 05:13 98.7 F 09/25/19 00:35 99.4 F 09/24/19 21:10 99.3 F 98 18 146/92 H 93 L Weight Weight 100.698 kg I&O: 09/23/19 09/24/19 09/25/19 05:59 06:59 06:59 Intake Total 2700 Output Total 1000 Balance 1700 Result Diagrams: 09/25/19 05:17 09/25/19 05:17 Phys Exam - Physical Examination Constitutional: NAD (resting comfortably in bed, in good spirits) HEENT: moist MMs Neck: no nodes, supple Respiratory: no wheezing, no rales, no rhonchi, clear to auscultation bilateral Cardiovascular: RRR, no significant murmur, no rub Gastrointestinal: soft, positive bowel sounds mildly distented, mildly tender to LLQ, no rebound or guarding Musculoskeletal: no edema Neurological: non-focal, moves all 4 limbs Psychiatric: normal affect, A&O x 3 Dx/Plan (1) Partial small bowel obstruction Status: Acute (2) Diverticulitis Code(s): K57.92 - DVTRCLI OF INTEST, PART UNSP, W/O PERF OR ABSCESS W/O BLEED Status: Acute (3) Sepsis Code(s): A41.9 - SEPSIS, UNSPECIFIED ORGANISM Status: Acute (4) HTN (hypertension) Code(s): I10 - ESSENTIAL (PRIMARY) HYPERTENSION Status: Chronic - Plan Plan: 74 AAM with PMHx of HTN and HLD admitted for: #Sepsis 2/2 Diverticulitis,complicated by partial SBO - clinically improving with passing of flatus, 1 BM overnight, pain improved, and fever free for past 24 hrs - CT Abd: non-specific mild free fluid, edematous changes in omentum, colonic diverticulosis with mild wall thickening in sigmoid colon. No evidence of perforation. - Repeat CT Abd: suspicious for partial SBO with small BL pleural effusions - made NPO, cont IVF of LR @150cc/hr - lactic 3.7>2.7>1.0 - 1st known episode of diverticulitis. Will continue medical management at this time - Blood cultures ngtd, will continue to follow. Had fever of 100.5 since admission, repeat blood cultures were drawn; NGTD, will cont to follow - zosyn IVPB transitioned to rocephin and flagyl 09/22 -> now on levaquin and flagyl for diverticulitis - morphine IV for pain - Gen Surg consulted, Dr. Thomason, rec bowel rest, IVF, cont abx, and will likely need OP GI after approx 2 wks of abx for repeat colonoscopy and ultimately need electrive sigmoidectomy with anastomosis in future, apprec recs #Leukocytosis - WBC 14, likely 2/2 above, AM labs pending, cont to monitor #HTN - Continue home meds #HLD - continue statin Code: Full PCP: [facility] Fluids: LR at 150ml/hr VTE ppx: lovenox 40 GI ppx: pepcid bid IV Diet: NPO Disposition: Admitted to inpatient medical. Continue IVF and abx today. Await gen surg recs, clinically improving. Addendum - Attending - Attending Attestation Date/Time: 09/25/19 1240 I personally evaluated the patient and discussed the management with Dr. Spaulding. I agree with the History, Examination, Assessment and Plan documented above with any addition or exceptions noted below. Patient feeling improved. Continue bowel rest, possible advance to clears. Seems SBO has resolved as he is now having BMs. Surgery on board.
[2019-09-25 05:28] LABS: #Eosinphils 0.1 thou/uL (0.0-0.7); #Lymphocytes 0.9 thou/uL (1.20-3.40); #Monocytes 0.5 thou/uL (0.11-0.59); #Neutrophils 8.8 thou/uL (1.40-6.50); %Basophils 0.2 % (0.0-1.0); %Eosinophils 0.5 % (0.0-10.0); %Lymphocytes 8.9 % (21.0-51.0); %Monocytes 4.6 % (0.0-10.0); %Neutrophils 85.7 % (42.0-75.0); Hemoglobin 12.6 g/dL (14.0-18.0); Mean Corpuscular HGB CONC 34.1 g/dL (32.0-36.0); Mean Corpuscular Hemoglobin 29.3 pg (27.0-31.0); Mean Corpuscular Volume 85.9 fL (78.0-98.0); Mean Platelet Volume 7.5 fL (7.4-10.4); Platelet Count 166 thou/uL (130-400); RBC Distribution Width 12.7 % (11.5-14.5); Red Blood Cell (RBC) Count 4.31 mill/uL (4.70-6.10); White Blood Cell (WBC) Count 10.3 thou/uL (4.8-10.8)
[2019-09-25 05:45] LABS: Anion Gap 9 mmol/L (10-20); BUN (Urea Nitrogen) 13 mg/dL (8.4-25.7); Calc. Creatinine Clearance 101 mL/min (70-130); Calcium 8.2 mg/dL (7.8-10.44); Carbon Dioxide 27 mmol/L (23-31); Chloride 105 mmol/L (98-107); Estimated GFR-MDRD Greater than 90; Glucose 101 mg/dL (83-110); Potassium 3.7 mmol/L (3.5-5.1); Sodium 137 mmol/L (136-145)
[2019-09-25] MEDS: Lactated Ringer's 1,000 ML IV SCH ×2 (06:17→09:07)
[2019-09-25 06:21] LABS: Magnesium 1.6 mg/dL (1.6-2.6); Phosphorus 3.1 mg/dL (2.3-4.7)
[2019-09-25] MEDS: Hydrochlorothiazide 25 MG TAB PO SCH (09:06)
[2019-09-25] MEDS: Metoprolol Tartrate 50 MG TAB PO SCH (09:06)
[2019-09-25] MEDS: Enoxaparin Sodium 40 MG/0.4 ML SYRINGE SC SCH (09:07)
[2019-09-25] MEDS: Famotidine/PF 20 mg/2ml Vial SLOW IVP SCH ×2 (09:07→21:12)
[2019-09-25] MEDS ORDERED: traMADol HCl 50 MG TAB PO PRN (10:12)
[2019-09-25] MEDS: Simethicone Chewable 80 MG TAB PO PRN (10:42)
--- NOTE | 2019-09-25 10:58 | PRG ---
DATE OF SERVICE: 09/25/2019 SUBJECTIVE: Mr. aGmboa is a 74-year-old male, who came into our facility for evaluation of abdominal pain. He sustained diverticulitis, now on conservative treatment with IV antibiotic and bowel rest the patient's pain is getting better. He not yet had a bowel movement, but he has had some gas. OBJECTIVE: VITAL SIGNS: Stable. GENERAL: The patient is lying in bed, comfortable with no acute respiratory distress. ABDOMEN: Soft and nondistended. Bowel sounds _hypoactive IMPRESSION: Acute diverticulitis, conservative treatment with IV antibiotics. PLAN: We will advance diet to clear liquid today. Continue IV antibiotic. Anticipate advance to regular diet tomorrow and through to p.o. antibiotic. Probably, the patient can go home tomorrow and continue antibiotics for 2 weeks. The patient will need to see Dr. Thomason in 2 weeks after discharge. The patient was seen and evaluated with Dr. Erwin on round this morning. Job ID: [id number] MTDD
[2019-09-25] MEDS: Acetaminophen 325 MG TAB PO SCH ×3 (13:14→21:12)
--- NOTE | 2019-09-26 00:16 | PRG ---
DATE OF SERVICE: 09/25/2019 SUBJECTIVE: The patient was seen this evening during rounds. He was resting in bed comfortably and asleep with no signs of acute distress. Nursing reported no acute events. OBJECTIVE: VITAL SIGNS: Temperature 98.6, pulse 81, respirations 18, oxygen saturation 96% on room air, and blood pressure 155/95. GENERAL: Well-appearing elderly male, lying in bed, asleep with no signs of acute respiratory distress. ASSESSMENT: Acute sigmoid colon diverticulitis with partial small-bowel obstruction. RECOMMENDATIONS: Continue bowel rest and IV hydration. Continue broad-spectrum antibiotics. We will consider changing the patient's medications to p.o. form tomorrow. In the meantime, he can continue clear liquid diet. Continue ambulating and using incentive spirometer. Dr. Thomason will re-evaluate the patient in the morning. Job ID: [id number]
[2019-09-26] MEDS: Acetaminophen 325 MG TAB PO SCH ×6 (00:56→21:09)
[2019-09-26] MEDS: Lactated Ringer's 1,000 ML IV SCH ×2 (00:59→12:07)
[2019-09-26] MEDS: metroNIDAZOLE 500 MG in Premix Bag 1 BAG IVPB SCH ×2 (03:00→11:35)
[2019-09-26 05:22] LABS: #Eosinphils 0.1 thou/uL (0.0-0.7); #Monocytes 0.9 thou/uL (0.11-0.59); %Basophils 0.5 % (0.0-1.0); %Eosinophils 1.1 % (0.0-10.0); %Lymphocytes 11.5 % (21.0-51.0); %Monocytes 9.7 % (0.0-10.0); %Neutrophils 77.2 % (42.0-75.0); Hemoglobin 12.8 g/dL (14.0-18.0); Mean Corpuscular Hemoglobin 28.2 pg (27.0-31.0); Mean Corpuscular Volume 85.4 fL (78.0-98.0); Mean Platelet Volume 7.8 fL (7.4-10.4); Platelet Count 181 thou/uL (130-400); RBC Distribution Width 12.9 % (11.5-14.5); Red Blood Cell (RBC) Count 4.55 mill/uL (4.70-6.10)
--- NOTE | 2019-09-26 05:29 | PDOC.FM ---
- Subjective Subjective: Doing well this morning, no acute events overnight. Had 2-3, small, loose BM overnight, passing some flatus. Abd pain resolved. No CP, SOB, fever,chills. Misunderstood diet instructions and thus has still been NPO yesterday but eager to try clear liquid diet for breakfast. No n/v. Ambulating well. Voiding without difficulty. Abd distension and bloating improved. Overall feeling near baseline and much improved. - Objective MAR Reviewed: Yes Vital Signs & Weight: Vital Signs (12 hours) Temp Pulse Resp BP BP Pulse Ox 09/26/19 03:42 98.5 F 81 18 128/77 96 09/26/19 00:37 98.4 F 09/25/19 20:17 98.6 F 81 18 155/95 H 96 Weight Weight 100.698 kg I&O: 09/24/19 09/25/19 09/26/19 06:59 06:59 06:59 Intake Total 2700 400 Output Total 1000 Balance 1700 400 Result Diagrams: 09/26/19 05:09 09/26/19 05:08 Phys Exam - Physical Examination Constitutional: NAD (sitting upright on side of bed, in good spirits) HEENT: PERRLA Neck: supple Respiratory: no wheezing, no rales, no rhonchi, clear to auscultation bilateral Cardiovascular: RRR, no significant murmur, no rub Gastrointestinal: soft, non-tender, no distention, positive bowel sounds Musculoskeletal: no edema Neurological: non-focal, moves all 4 limbs Psychiatric: normal affect, A&O x 3 Dx/Plan (1) Partial small bowel obstruction Status: Acute (2) Diverticulitis Code(s): K57.92 - DVTRCLI OF INTEST, PART UNSP, W/O PERF OR ABSCESS W/O BLEED Status: Acute (3) Sepsis Code(s): A41.9 - SEPSIS, UNSPECIFIED ORGANISM Status: Acute (4) HTN (hypertension) Code(s): I10 - ESSENTIAL (PRIMARY) HYPERTENSION Status: Chronic - Plan Plan: 74 AAM with PMHx of HTN and HLD admitted for: #Sepsis 2/2 Diverticulitis,complicated by partial SBO - conts to clinically improve, passing of flatus, 2-3 BM over past 24hrs, pain resolved and fever free for past >48 hrs - CT Abd: non-specific mild free fluid, edematous changes in omentum, colonic diverticulosis with mild wall thickening in sigmoid colon. No evidence of perforation. - Repeat CT Abd: suspicious for partial SBO with small BL pleural effusions - initially placed on bowel rest and started on IVF, diet as been advanced to clears and will try this morning for breakfast. - IVF of LR @75cc/hr - lactic 3.7>2.7>1.0. Procal 13->7->5 - 1st known episode of diverticulitis. Will continue medical management at this time - BCx x2 sets all NGTD, will cont to follow - morphine IV for pain, has not required in past 2 days, schd tylenol - Gen Surg consulted, Dr. Thomason, rec bowel rest, IVF, cont abx, and will likely need OP GI after approx 2 wks of abx for repeat colonoscopy and ultimately need elective sigmoidectomy with anastomosis in future, apprec recs - anticipate cont advancement of diet this AM with transition to PO abx and consider discharge this PM vs tomorrow morning pending toleration and clinical course #Leukocytosis, resolved - WBC 14 -> 12, likely 2/2 above, cont to monitor #HTN - Continue home meds #HLD - continue statin Code: Full PCP: [facility] Fluids: LR at 75ml/hr VTE ppx: lovenox 40 GI ppx: pepcid bid IV Diet: Clears Disposition: Admitted to inpatient medical. Continue IVF and abx today. Slow adv of diet and monitor sxs, clinically improving. Addendum - Attending - Attending Attestation Date/Time: 09/26/19 9558 I personally evaluated the patient and discussed the management with Dr. Spaulding. I agree with the History, Examination, Assessment and Plan documented above with any addition or exceptions noted below. Patient improved. Tolerating clears well. Will escalate diet. Plan for continued abx for diverticulits and outpatient surgery follow up. Likely discharge in the next day or so.
[2019-09-26 05:41] LABS: Phosphorus 3.1 mg/dL (2.3-4.7)
[2019-09-26 05:42] LABS: Anion Gap 12 mmol/L (10-20); BUN (Urea Nitrogen) 13 mg/dL (8.4-25.7); Calc. Creatinine Clearance 103 mL/min (70-130); Calcium 8.1 mg/dL (7.8-10.44); Carbon Dioxide 24 mmol/L (23-31); Chloride 105 mmol/L (98-107); Estimated GFR-MDRD Greater than 90; Glucose 87 mg/dL (83-110); Magnesium 1.6 mg/dL (1.6-2.6); Potassium 3.5 mmol/L (3.5-5.1); Sodium 137 mmol/L (136-145)
[2019-09-26] MEDS: Hydrochlorothiazide 25 MG TAB PO SCH (08:56)
[2019-09-26] MEDS: Famotidine 20 MG TAB PO SCH ×2 (08:57→21:08)
[2019-09-26] MEDS: Enoxaparin Sodium 40 MG/0.4 ML SYRINGE SC SCH (08:57)
[2019-09-26] MEDS: Metoprolol Tartrate 50 MG TAB PO SCH (08:57)
[2019-09-26] MEDS: metroNIDAZOLE 500 MG TAB PO SCH ×2 (13:52→21:10)
--- NOTE | 2019-09-26 21:02 | PRG ---
DATE OF SERVICE: 09/26/2019 SUBJECTIVE: The patient was seen during morning rounds, awake, alert, in no distress. The patient reports having three bowel movements. The patient denies any nausea, vomiting, or abdominal pain. OBJECTIVE: VITAL SIGNS: Temperature 98.3, pulse 81, respirations 18, SpO2 of 97% on room air, blood pressure 163/93. GENERAL: Elderly male, well-appearing, awake, alert, in no distress. RESPIRATORY: Equal chest rise and fall, respirations nonlabored. ABDOMEN: Soft, nontender, and nondistended. LABORATORY DATA: WBC 9.0, RBC 4.55, hemoglobin 12.8, hematocrit 38.8, platelets 181. Sodium 137, potassium 3.5, chloride 105, BUN 13, creatinine 0.91, estimated GFR greater than 90, glucose 87, calcium 8.1, phosphorus 3.1, magnesium 1.6. ASSESSMENT: Acute sigmoid colon diverticulitis with partial small-bowel obstruction, resolved. RECOMMENDATIONS: Increase diet as tolerated. Regular diet. Stop IV fluids. Switch antibiotics to p.o. Continue to have patient ambulate frequently and use incentive spirometer. Most likely the patient can be discharged home tomorrow. The patient was evaluated by Dr. Thomason during morning rounds. Job ID: [id number]
[2019-09-26] MEDS: Simethicone Chewable 80 MG TAB PO PRN (22:01)
[2019-09-27] MEDS: Acetaminophen 325 MG TAB PO SCH ×6 (02:09→23:44)
--- NOTE | 2019-09-27 04:32 | PRG ---
DATE OF SERVICE: 09/26/2019 SUBJECTIVE: Patient was seen this evening during rounds. He was sitting up in the chair and having a meal. He reported that his abdominal pain had improved and he had had multiple small liquid bowel movements. Reported that his abdomen felt full and like he needed to pass gas or belch, but was not able to. He reports only walking in the hallway once or twice and states that he did not know he needed to be ambulating more in the hallway. He denies nausea or vomiting. Otherwise, he had an uneventful day. OBJECTIVE: VITAL SIGNS: Temperature 99, pulse 80, respirations 20, oxygen saturation 95% on room air, and blood pressure 134/83. GENERAL: Well-appearing elderly male, sitting up in chair with no signs of acute distress. PULMONARY: Equal chest rise and fall. No signs of acute respiratory distress. ABDOMEN: Soft, mildly distended, and nontender. There are no signs of peritonitis. ASSESSMENT: 1. Sigmoid diverticulitis with partial small-bowel obstruction, improving. 2. History of hypertension and hyperlipidemia. PLAN: Continue p.o. antibiotics. Continue home medications and medical management per primary team. Patient is encouraged to ambulate as much as possible as his abdomen does feel full and he reports he feels like he needs to pass gas and belch, but is not able to. No need for NG tube at this time. Please advise Trauma Surgery team if patient becomes toxic appearing or has nausea, vomiting, or increased abdominal pain. The patient will need a total of 14 additional days of oral antibiotics from the day he gets discharged. He will follow up two weeks after discharge with Dr. Hodge as Dr. Thomason will be out of town that week and the patient needs to be seen in 2 weeks by general surgeon. He will also need a CT scan of the abdomen and pelvis with IV and p.o. contrast before following up with Dr. Hodge. Trauma Surgery team to advise Dr. Hodge of followup. His discharge packet has been updated with this information. Dr. Thomason in the Trauma Team will round on the patient in the morning and reassess for possible discharge in the morning time. Job ID: [id number]
[2019-09-27] MEDS: Simethicone Chewable 80 MG TAB PO PRN (05:10)
--- NOTE | 2019-09-27 05:38 | PDOC.FM ---
- Subjective Subjective: Overnight did well without acute events. Pt and state that he is tolerating PO well with advancement to regular diet, no n/v; however is still having significant bloating, not passing any flatus at this time, and has only had 2-3 small-volume, watery BM. He is ambulating in the rousseau frequently, no Cp , SOB, fever/chills. No abd pain other than bloating feeling. He is belching frequently which does help. - Objective MAR Reviewed: Yes Vital Signs & Weight: Vital Signs (12 hours) Temp Pulse Resp BP Pulse Ox 09/26/19 20:16 99.0 F 80 20 134/83 95 09/26/19 19:29 94 L Weight Weight 100.698 kg I&O: 09/25/19 09/26/19 09/27/19 06:59 06:59 06:59 Intake Total 2700 400 Output Total 1000 Balance 1700 400 Result Diagrams: 09/26/19 05:09 09/26/19 05:08 Phys Exam - Physical Examination Constitutional: NAD (ambulating in hallways, good spirits) HEENT: PERRLA Neck: supple Respiratory: no wheezing, no rales, no rhonchi, clear to auscultation bilateral Cardiovascular: RRR, no significant murmur, no rub Gastrointestinal: soft, non-tender mildly distended, hypoactive BM, no rebound or guarding Musculoskeletal: no edema Neurological: moves all 4 limbs (normal gait and station) Psychiatric: normal affect, A&O x 3 Dx/Plan (1) Partial small bowel obstruction Status: Acute (2) Diverticulitis Code(s): K57.92 - DVTRCLI OF INTEST, PART UNSP, W/O PERF OR ABSCESS W/O BLEED Status: Acute (3) Sepsis Code(s): A41.9 - SEPSIS, UNSPECIFIED ORGANISM Status: Acute (4) HTN (hypertension) Code(s): I10 - ESSENTIAL (PRIMARY) HYPERTENSION Status: Chronic - Plan Plan: 74 AAM with PMHx of HTN and HLD admitted for sepsis 2/2 diverticulitis complicated by partial SBO #Sepsis 2/2 Diverticulitis,complicated by partial SBO - This morning is no longer passing flatus, only with 2-3 small watery BM over past 24 hours. Abd distension, minimal pain. No fever/chills. - CT Abd: non-specific mild free fluid, edematous changes in omentum, colonic diverticulosis with mild wall thickening in sigmoid colon. No evidence of perforation. - Repeat CT Abd: suspicious for partial SBO with small BL pleural effusions - initially placed on bowel rest and started on IVF, diet as been advanced to regular and he is tolerating well with no n/v - IVF have been discontinued, tolerating PO hydration well - lactic 3.7>2.7>1.0. Procal 13->7->5 -> 3. WBC 14 ->9 - 1st known episode of diverticulitis. Will continue medical management at this time - BCx x2 sets all NGTD, will cont to follow - minimal pain, more abd distension - Gen Surg consulted, Dr. Thomason, rec bowel rest, IVF, cont abx (now transitioned to PO), and will likely need OP GI after approx 2 wks of abx for repeat CT abd/pelvis with oral and IV contrast as well as colonoscopy and ultimately need elective sigmoidectomy with anastomosis in future, apprec recs - This morning pt does not appear as eager for discharge as previous days and concern he has not had good BM. We will encourage ambulation and monitor sxs this morning. Consider discharge this PM vs tomorrow pending clinical course and sxs. #HTN - Continue home meds #HLD - continue statin Code: Full PCP: [facility] Fluids: SL VTE ppx: lovenox 40 GI ppx: pepcid PO Diet: Regular Disposition: Admitted to inpatient medical. Cont abx. Diet advanced. Encourage ambulation. Monitor sxs and clinical status, anticipate discharge next 1-2 days pending clinical course. Addendum - Attending - Attending Attestation Date/Time: 09/27/19 6172 I personally evaluated the patient and discussed the management with Dr. Spaulding. I agree with the History, Examination, Assessment and Plan documented above with any addition or exceptions noted below. Patient overall feeling well. He is tolerating PO well. However, has stopped passing flatus and no BM. Surgery is currently in with patient and will await further recs from them, but it is looking less likely that he will be discharged today.
--- NOTE | 2019-09-27 09:41 | RAD ---
XR Abdomen 2 View History: Diverticulitis Comparison: CT abdomen and pelvis September 2019 Findings: Continued dilatation of small bowel with multiple air-fluid levels, predominantly in the le ft upper quadrant of the abdomen. There appears be some contrast over the right lower quadrant not definitively within large bowel. No definite free air under the hemidiaphragms. Layering right pleural effusion. Impression: Continued evidence of high-grade small bowel obstruction.
[2019-09-27] MEDS: Hydrochlorothiazide 25 MG TAB PO SCH (09:47)
[2019-09-27] MEDS: Metoprolol Tartrate 50 MG TAB PO SCH (09:48)
[2019-09-27] MEDS: metroNIDAZOLE 500 MG TAB PO SCH ×3 (09:48→23:44)
[2019-09-27] MEDS: Famotidine 20 MG TAB PO SCH ×2 (09:49→23:44)
[2019-09-27] MEDS: Enoxaparin Sodium 40 MG/0.4 ML SYRINGE SC SCH (09:49)
[2019-09-27] MEDS ORDERED: PHENYLEPHRINE-NS 100 MCG/ML 10 ML SYRINGE ONE (10:15)
[2019-09-27] MEDS ORDERED: diphenhydrAMINE 50 MG/ML VIAL ONE (10:15)
[2019-09-27] MEDS ORDERED: Dexamethasone 20 MG/5 ML VIAL ONE (10:15)
[2019-09-27] MEDS ORDERED: PROPOFOL 200 MG/20 ML VIAL ONE (10:15)
[2019-09-27] MEDS ORDERED: Glycopyrrolate 0.2 MG/ML 5 ML SYRINGE ONE (10:15)
[2019-09-27] MEDS ORDERED: Ondansetron PF 4 MG/2 ML Vial ONE (10:15)
[2019-09-27] MEDS ORDERED: Rocuronium Bromide 10 MG/ML (10ML VIAL) ONE (10:15)
[2019-09-27] MEDS: Lactated Ringer's 1,000 ML IV SCH (14:25)
[2019-09-27] MEDS: Ondansetron PF 4 MG/2 ML Vial IVP PRN (14:25)
--- NOTE | 2019-09-27 17:56 | RAD ---
SMALL BOWEL SERIES: 09/27/19 HISTORY: Small bowel obstruction. The preliminary economic development coordinator film shows markedly dilated small bowel loops. [facility] only within the proximal ileum. Dr. Thomason requested the exam be terminated. IMPRESSION: Findings compatible with small bowel obstruction. POS: [facility]
[2019-09-27] MEDS ORDERED: Neomycin-Polymyxin 1 ML AMP ONE ×2 (19:02→19:30)
[2019-09-27] MEDS ORDERED: Midazolam HCl 2 mg/2 ml Vial ONE (19:42)
[2019-09-27] MEDS ORDERED: Fentanyl 100 MCG/2 ML VIAL ONE (19:42)
--- NOTE | 2019-09-27 19:54 | PRG ---
DATE OF SERVICE: 09/27/2019 SUBJECTIVE: Bee is a 74-year-old man who was admitted on 09/21/2019, with acute sigmoid colon diverticulitis. The patient was managed nonoperatively with broad-spectrum antibiotic therapy and bowel rest. In the interim, he developed acute small bowel obstruction, which is being managed with nasogastric tube decompression and bowel rest. Small-bowel follow-through was obtained today, 3 hours. No contrast is noted in the colon. In the interim, the patient started with worsening crampy abdominal pain associated with multiple episodes of bilious emesis. Nasogastric tube was placed to suction and returned 2 L of succus entericus. OBJECTIVE: VITAL SIGNS: Otherwise include blood pressure 148/91, pulse 79, respiratory rate 16, temperature 97.8 degrees Fahrenheit, oxygen saturation 97% on room air. HEART: Reveals regular rate and rhythm. LUNGS: Clear to auscultation bilaterally. Breathing, regular and nonlabored. ABDOMEN: Soft and distended with moderate tenderness to palpation. There is no rebound tenderness present. LABORATORY FINDINGS: CBC from yesterday 9000 white blood cells, hemoglobin and hematocrit 12.8 and 38.8 respectively, platelet count is 181,000. Metabolic profile yesterday as well sodium 137, potassium 3.5, chloride is 105, bicarb is 24, BUN 13, creatinine 0.91, glucose 87, magnesium 1.6, and phosphorus 3.1. IMPRESSION: Acute small-bowel obstruction, likely secondary to acute sigmoid colon diverticulitis versus missed acute appendicitis. PLAN: Exploratory laparotomy, and if missed appendicitis, we will complete appendectomy, abdominal washout and drainage of likely pelvic abscess. Otherwise, if small-bowel obstruction is secondary to acute diverticulitis, we will proceed with sigmoidectomy with end-colostomy. Above findings and plan was discussed with the patient and his at bedside. They both indicated understanding of information given. I have answered their questions. Job ID: [id number]
[2019-09-27] MEDS ORDERED: diphenhydrAMINE 25 MG CAP PO PRN (20:28)
[2019-09-27] MEDS ORDERED: HYDROmorphone 10 mg/100 ml CADD IVPB PRN (20:28)
[2019-09-27] MEDS ORDERED: diphenhydrAMINE 50 MG/ML VIAL IVP PRN (20:28)
[2019-09-27] MEDS ORDERED: Naloxone HCl 0.4 mg/ml Vial IV PRN (20:28)
[2019-09-27] MEDS ORDERED: Promethazine HCl 25 MG/ML VIAL IM PRN ×2 (20:28→22:27)
[2019-09-27] MEDS ORDERED: diphenhydrAMINE 50 MG/ML VIAL IM PRN (20:28)
[2019-09-27] MEDS ORDERED: Communication Order-Pharmacy FS SCH (20:30)
[2019-09-27] MEDS ORDERED: Ondansetron HCl/PF 4 MG/2 ML Vial IVP PRN (22:27)
[2019-09-27] MEDS ORDERED: Promethazine HCl 25 MG/ML VIAL SLOW IVP PRN (22:27)
[2019-09-27] MEDS ORDERED: Morphine Sulfate 2 MG/ML SYRINGE SLOW IVP PRN (22:27)
[2019-09-27] MEDS ORDERED: hydrALAZINE 20 MG/ML VIAL ONE (22:47)
--- NOTE | 2019-09-27 23:38 | OP ---
DATE OF PROCEDURE: 09/27/2019 PREOPERATIVE DIAGNOSIS: Acute diverticulitis with acute small-bowel obstruction. POSTOPERATIVE DIAGNOSES: 1. Subacute diverticulitis. 2. Acute small-bowel obstruction secondary to intraabdominal adhesions. 3. Prior appendicitis. PROCEDURES PERFORMED: 1. Exploratory laparotomy. 2. Adhesiolysis. 3. Appendectomy. ANESTHESIA: General endotracheal. ESTIMATED BLOOD LOSS: 50 mL. FLUIDS GIVEN: 1800 mL crystalloids. COUNTS: Sponge and instrument counts were verified as correct x2. COMPLICATIONS: None apparent at the time of operation. INDICATIONS FOR OPERATION: This is a 74-year-old man, who presented with abdominal pain. Clinical radiographic examination was consistent with acute sigmoid colon diverticulitis, which was managed initially conservatively with broad-spectrum antibiotic therapy, bowel rest. Subsequently, the patient was started on a clear liquid diet, which he failed to tolerate. He developed worsening abdominal pain associated with multiple episodes of bilious emesis. A small-bowel follow-through was obtained revealing acute small-bowel obstruction. The patient was brought to the operating room for exploration with the plan to perform a Jimy's procedure. Findings are consistent with subacute sigmoid colon diverticulitis. No fecal contamination or abscess. There is obstruction of the distal ileum with fibrinous exudates around the terminal ileum and appendix, although the appendix itself did not look overtly acutely inflamed. DESCRIPTION OF PROCEDURE: Informed consent was obtained from the patient, who was brought to the operating room and placed in supine position. Following general anesthesia, a Ugarte catheter was inserted and placed to bedside drain. The previous nasogastric tube was placed to wall suction. The abdomen was sterilely prepped and draped in usual fashion. A midline incision was made using a 10 scalpel. Incision was carried through subcutaneous tissues maintaining hemostasis using cautery. The fascia incised in the midline exposing the peritoneum, beneath which was grasped x2 with hemostats. The peritoneal cavity was sharply entered using Metzenbaum scissors. The incision was then extended superiorly and inferiorly. A Bookwalter retractor was put in place to gain exposure. Cloudy pelvic fluid was evacuated and sent to microbiology. The small bowel was then run from the ligament of Treitz down to terminal ileum encountering an adhesive band in the distal ileum as well as multiple fibrinous exudates, which were broken along the way. The large intestine was then inspected from the cecum through the ascending, transverse, descending, sigmoid colon and rectum. Diverticular disease is noted. No evidence of acute perforation. The appendix itself had some fibrinous exudates around and as if he was incorporated in the small-bowel obstruction secondary to adhesions. Decision was made therefore to remove the appendix at this time. A rent was created at the mesoappendix at the base. The appendix was divided at the appendicocecal junction between two clamps. The mesoappendix was divided between clamps and suture ligated with 2-0 silks. The appendiceal stump was then ligated with a stick tie of 2-0 silk. Operative site was inspected for good hemostasis. The abdomen was then copiously irrigated until it was clear. A #19 Sky drain was introduced into the pelvis and allowed to exit the abdominal cavity through a separate stab incision. The drain was secured to anterior abdominal wall using 2-0 silk suture. A sheet of Seprafilm was placed in the deep pelvis and small bowel returned to normal anatomic location. A second sheet of Seprafilm was placed over the remainder of the viscera. Omentum is drawn over the small bowel. Fascia was approximated in the midline using a running stitch of #1 single stranded PDS. Subcutaneous tissues were irrigated clear with saline solution, perfected hemostasis using cautery. Skin incision was closed using wai. Sterile dressings were applied. The patient tolerated the operation without any apparent complication and was returned to recovery room in satisfactory condition. Job ID: [id number]
[2019-09-27] MEDS: Saccharomyces boulardii 250 MG CAP PO SCH (23:44)
[2019-09-28] MEDS: Ketorolac Tromethamine 30 MG/ML VIAL IVP SCH ×5 (00:10→23:04)
[2019-09-28] MEDS: Lactated Ringer's 1,000 ML IV SCH ×4 (00:10→21:42)
[2019-09-28] MEDS: Acetaminophen 325 MG TAB PO SCH ×6 (00:51→20:29)
[2019-09-28] MEDS: metroNIDAZOLE 500 MG in Premix Bag 1 BAG IVPB SCH ×3 (01:50→19:30)
--- NOTE | 2019-09-28 05:12 | PRG ---
DATE OF SERVICE: 09/28/2019 SUBJECTIVE: The patient was seen this evening during rounds. He was lying in bed and awake with no signs of acute distress. He reported his pain was 8/10, but had not been pressing his Dilaudid STATISTICAL SECRETARY as he reported he was sleeping and forgot. He is postoperative day #0 after ex lap, adhesiolysis, and appendectomy for small bowel obstruction. The patient is n.p.o. with NG tube in place. OBJECTIVE: VITAL SIGNS: Temperature 98.8, pulse 94, respirations 18, oxygen saturation 94% on room air, and blood pressure 160/69. GENERAL: Well-appearing elderly male, lying in bed with no signs of acute distress. PULMONARY: Equal chest rise and fall. No signs of acute respiratory distress. ASSESSMENT: 1. Sigmoid diverticulitis, improving. 2. Postoperative day #0, status post exploratory laparotomy, adhesiolysis, and appendectomy for small bowel obstruction. 3. History of hypertension. 4. Hyperlipidemia. PLAN: Continue n.p.o. Continue IV fluid. Continue NG tube to suction. We will change the patient's antibiotics back to IV. Repeat blood work in the morning. The patient is to ambulate and use incentive spirometer as much as possible. We will continue to monitor for return of bowel function. Job ID: [id number]
--- NOTE | 2019-09-28 05:30 | PDOC.FM ---
- Subjective Subjective: S/p Exlap POD#1 for SBO. Tolerated procedure well. Doing well this morning without acute concerns or complaints. States pain and distension is much improved this morning post-op. Pain controlled with SUPERVISOR MOLD CLEANING AND STORAGE. No fever/chills, nausea , CP. No flatus or BM. Ugarte in place. Eager to ambulate this morning. - Objective MAR Reviewed: Yes Vital Signs & Weight: Vital Signs (12 hours) Temp Pulse Resp BP Pulse Ox 09/28/19 04:17 98.8 F 94 18 160/69 H 94 L 09/27/19 23:15 98.5 F 81 20 143/81 H 94 L 09/27/19 18:40 98.3 F 83 16 165/91 H 96 Weight Weight 100.698 kg I&O: 09/26/19 09/27/19 09/28/19 06:59 06:59 06:59 Intake Total 400 350 520 Output Total 2750 Balance 400 350 -2230 Result Diagrams: 09/28/19 05:15 09/28/19 05:15 Phys Exam - Physical Examination Constitutional: NAD (resting comfortably, good spirits) HEENT: moist MMs NG in place Neck: supple Respiratory: no wheezing, no rales, no rhonchi, clear to auscultation bilateral Cardiovascular: RRR, no significant murmur, no rub Gastrointestinal: soft, non-tender, no distention, positive bowel sounds Incision dressing c/d/i. MONE on R in place serosanguinouse fluid : Ugarte in place, straw-colored urine Musculoskeletal: no edema Neurological: moves all 4 limbs Psychiatric: normal affect, A&O x 3 Dx/Plan (1) Partial small bowel obstruction Status: Acute (2) Diverticulitis Code(s): K57.92 - DVTRCLI OF INTEST, PART UNSP, W/O PERF OR ABSCESS W/O BLEED Status: Acute (3) Sepsis Code(s): A41.9 - SEPSIS, UNSPECIFIED ORGANISM Status: Acute (4) HTN (hypertension) Code(s): I10 - ESSENTIAL (PRIMARY) HYPERTENSION Status: Chronic - Plan Plan: 74 AAM with PMHx of HTN and HLD admitted for sepsis 2/2 diverticulitis complicated by SBO now POD#1 s/p exlap #Sepsis 2/2 Diverticulitis,complicated by SBO now POD#1 s/p exlap, sepsis resolved - Admission CT Abd: non-specific mild free fluid, colonic diverticulosis with mild wall thickening in sigmoid colon. No evidence of perforation. - Repeat CT Abd: suspicious for partial SBO with small BL pleural effusions - initially placed on bowel rest and started on IVF, diet was advanced and pt initially doing well until change of status yesterday - BCx x2 sets all NGTD, will cont to follow - Gen Surg consulted, Dr. Thomason, rec initial bowel rest, IVF, cont abx. Initially transitioned to PO; however 3 had change in status per below. Rec likely need OP GI after approx 2 wks of abx for repeat CT abd/pelvis with oral and IV contrast as well as colonoscopy and ultimately need elective sigmoidectomy with anastomosis in future, apprec recs - Yesterday stopped passing flatus, small 2-3 watery BM, abd distension, pain increased. Small bowel follow through performed demonstrating SBO with increased pain on exam - Pt taken by Gen surgery to OR for exlap with adhesiolysis and appy, findings of SBO at terminal ileum and diverticulitis without complications, currently POD #1. Abd fluid sample take and cx pending. - Currently with NG in place, IVF, NPO. Encourage ambulation, pain control with SUPERVISOR M[employer] CLEANING [employer] STORAGE - Pt states he is doing well and improved post-op. Will cont to monitor clinical status, apprec Gen Surg assistance #HTN - Continue home meds, not at goal this morning but may be 2/2 post-anesthesia and pain, will cont to monitor. #HLD - continue statin Code: Full PCP: [facility] - [facility] Fluids: LR @ 100cc/hr VTE ppx: lovenox 40 GI ppx: pepcid IV Diet: NPO Disposition: Admitted to inpatient medical for diverticulitis, developed SBO now POD #1 s/p exlap. Will cont bowel rest with NG, IVF, SUPERVISOR M[employer] CLE[employer] STORAGE, and abx. Encourage ambulation. Apprec Gen surg recs. Addendum - Attending - Attending Attestation Date/Time: 09/28/19 5443 I personally evaluated the patient and discussed the management with Dr. Spaulding. I agree with the History, Examination, Assessment and Plan documented above with any addition or exceptions noted below.
[2019-09-28 06:26] LABS: Anion Gap 13 mmol/L (10-20); BUN (Urea Nitrogen) 19 mg/dL (8.4-25.7); Calc. Creatinine Clearance 89 mL/min (70-130); Calcium 8.3 mg/dL (7.8-10.44); Carbon Dioxide 25 mmol/L (23-31); Chloride 102 mmol/L (98-107); Estimated GFR-MDRD 84; Glucose 133 mg/dL (83-110); Magnesium 1.7 mg/dL (1.6-2.6); Phosphorus 4.5 mg/dL (2.3-4.7); Potassium 3.8 mmol/L (3.5-5.1); Sodium 136 mmol/L (136-145)
[2019-09-28 06:30] LABS: Band 16 % (5-11); Hemoglobin 14.4 g/dL (14.0-18.0); Lymphocytes 12 % (21-51); MDiff Complete? YES; Mean Corpuscular HGB CONC 34.2 g/dL (32.0-36.0); Mean Corpuscular Hemoglobin 28.9 pg (27.0-31.0); Mean Corpuscular Volume 84.6 fL (78.0-98.0); Mean Platelet Volume 7.8 fL (7.4-10.4); Monocytes 1 % (0-10); Neutrophil 71 % (42-75); Platelet Count 249 thou/uL (130-400); Platelet Morphology Comment Appears Adequate; RBC Distribution Width 12.9 % (11.5-14.5); Red Blood Cell (RBC) Count 4.99 mill/uL (4.70-6.10); White Blood Cell (WBC) Count 13.7 thou/uL (4.8-10.8)
[2019-09-28] MEDS: Famotidine/PF 20 mg/2ml Vial SLOW IVP SCH ×2 (08:20→20:29)
[2019-09-28] MEDS: Enoxaparin Sodium 40 MG/0.4 ML SYRINGE SC SCH (08:20)
[2019-09-28] MEDS: Saccharomyces boulardii 250 MG CAP PO SCH ×2 (08:21→20:29)
[2019-09-28] MEDS: Hydrochlorothiazide 25 MG TAB PO SCH (08:21)
[2019-09-28] MEDS: Metoprolol Tartrate 50 MG TAB PO SCH (08:22)
[2019-09-28] MEDS ORDERED: Magnesium 2 GM/50 ML 2 GM in Premix Bag 1 BAG IVPB SCH (08:45)
--- NOTE | 2019-09-28 15:19 | PRG ---
DATE OF SERVICE: 09/28/2019 SUBJECTIVE: The patient was seen during morning rounds with Dr. Erwin. The patient is awake, alert, lying in hospital bed, in no acute distress. The patient is postop day 1 exploratory laparotomy with adhesiolysis and appendectomy. The patient has a MONE drain with appropriate output. The patient's midline abdominal incision has some moderate drainage. The patient's pain is well controlled with his PULP BLEACHER Dilaudid. The patient voices no complaints or concerns at this time. OBJECTIVE: VITAL SIGNS: Blood pressure 137/91, SpO2 of 95% on room air, respirations 18, pulse 96, temperature 98.3. GENERAL: Well-appearing elderly male, in no acute distress. PULMONARY: Equal chest rise and fall, bilateral breath sounds clear. ABDOMEN: Mildly distended, soft, active bowel sounds. EXTREMITIES: Moves all extremities. No focal deficits. LABORATORY DATA: WBC 13.7, RBC 4.99, hemoglobin 14.4, hematocrit 42.2, platelets 249. Sodium 136, potassium 3.8, chloride 102, BUN 19, creatinine 1.05, estimated GFR 84, glucose 133. Calcium 8.3, phosphorus 4.5, magnesium 1.7. DIAGNOSTICS: There is no diagnostics to review today. ASSESSMENT: 1. Postoperative day #1, status post exploratory laparotomy, adhesiolysis and appendectomy for small bowel obstruction. 2. History of hypertension and hyperlipidemia. PLAN: The patient can have ice chips and sips at this time. We will continue IV fluids. We will continue pain regimen with Dilaudid PULP BLEACHER. We will continue IV antibiotics. Continue to use incentive spirometer. The patient has been instructed to walk frequently. We will monitor for return of bowel function. The patient does report passing gas. The patient was examined by Dr. Erwin. Job ID: [id number]
[2019-09-28] MEDS: Atorvastatin Calcium 10 MG TAB PO SCH (20:29)
[2019-09-28] MEDS ORDERED: Lactated Ringer's 500 ML IV SCH (20:30)
--- NOTE | 2019-09-29 00:22 | PRG ---
DATE OF SERVICE: 09/28/2019 SUBJECTIVE: The patient was seen this evening during rounds. He was sitting up in the chair with no signs of acute distress. He reported his pain was well controlled. He has been ambulating with PT. He is postoperative day #1, status post ex-lap, adhesiolysis and appendectomy. OBJECTIVE: VITAL SIGNS: Temperature 98.7, pulse 88, respirations 16, oxygen saturation 95% on room air, blood pressure 147/83. GENERAL: Well-appearing elderly male, sitting up in chair with no signs of acute distress. PULMONARY: Equal chest rise and fall. No signs of acute distress. ABDOMEN: Soft, nontender, and mildly distended. ASSESSMENT: 1. Postop day #1, status post exploratory laparotomy, adhesiolysis and appendectomy. 2. Sigmoid diverticulitis and partial small-bowel obstruction. 3. History of hypertension and hyperlipidemia. PLAN: Continue n.p.o. with ice chips. Continue Dilaudid ROAD MANAGER and IV antibiotics. We will increase his LR to 125 an hour and also give the patient a 500 mL bolus of LR as he has low urinary output last night and this morning. Repeat blood work in the morning and closely monitor kidney function. We will continue to encourage physical therapy, incentive spirometry and monitor for return of bowel function. Job ID: [id number]
[2019-09-29] MEDS: metroNIDAZOLE 500 MG in Premix Bag 1 BAG IVPB SCH ×3 (01:04→18:32)
[2019-09-29] MEDS: Acetaminophen 325 MG TAB PO SCH ×6 (01:09→20:27)
[2019-09-29] MEDS: Ketorolac Tromethamine 30 MG/ML VIAL IVP SCH ×3 (05:32→18:31)
[2019-09-29 06:02] LABS: Anion Gap 10 mmol/L (10-20); BUN (Urea Nitrogen) 26 mg/dL (8.4-25.7); Calc. Creatinine Clearance 90 mL/min (70-130); Calcium 7.8 mg/dL (7.8-10.44); Carbon Dioxide 27 mmol/L (23-31); Chloride 104 mmol/L (98-107); Estimated GFR-MDRD 85; Glucose 99 mg/dL (83-110); Magnesium 2.1 mg/dL (1.6-2.6); Phosphorus 3.2 mg/dL (2.3-4.7); Potassium 3.7 mmol/L (3.5-5.1); Sodium 137 mmol/L (136-145)
--- NOTE | 2019-09-29 06:08 | PDOC.FM ---
- Subjective Subjective: Doing well this morning, no acute events overnight. No nausea. Pain well- controlled with LOAN DOCUMENTATION SPECIALIST, using about once per hour. No flatus or BM. Esposito and MONE in place. Ambulating and using incentive spirometry frequently. Tolerating Ice chips. No fever/chills, Cp, SOB. - Objective MAR Reviewed: Yes Vital Signs & Weight: Vital Signs (12 hours) Temp Pulse Resp BP Pulse Ox 09/29/19 04:25 98.7 F 87 16 154/85 H 95 09/29/19 00:36 98.4 F 85 16 151/88 H 97 09/28/19 19:51 98.7 F 88 16 147/83 H 95 Weight Admit Weight 100.698 kg Weight 100.698 kg I&O: 09/27/19 09/28/19 09/29/19 06:59 06:59 06:59 Intake Total 350 520 Output Total 3255 Balance 350 -2735 Result Diagrams: 09/29/19 05:20 09/29/19 05:20 Phys Exam - Physical Examination Constitutional: NAD (resting comfortably, good spirits) HEENT: moist MMs Neck: supple Respiratory: no wheezing, no rales, no rhonchi, clear to auscultation bilateral Cardiovascular: RRR, no significant murmur, no rub Gastrointestinal: soft, no distention, positive bowel sounds appropriately tender, MONE serosanguinous drainage, incision c/d/i Esposito in place - straw colored urine Neurological: moves all 4 limbs Psychiatric: normal affect, A&O x 3 Dx/Plan (1) Partial small bowel obstruction Status: Acute (2) Diverticulitis Code(s): K57.92 - DVTRCLI OF INTEST, PART UNSP, W/O PERF OR ABSCESS W/O BLEED Status: Acute (3) Sepsis Code(s): A41.9 - SEPSIS, UNSPECIFIED ORGANISM Status: Acute (4) HTN (hypertension) Code(s): I10 - ESSENTIAL (PRIMARY) HYPERTENSION Status: Chronic - Plan Plan: 74 AAM with PMHx of HTN and HLD admitted for sepsis 2/2 diverticulitis complicated by SBO now POD#2 s/p exlap #Sepsis 2/2 Diverticulitis,complicated by SBO now POD#2 s/p exlap, sepsis resolved - Admission CT Abd: non-specific mild free fluid, colonic diverticulosis with mild wall thickening in sigmoid colon. No evidence of perforation. - Repeat CT Abd: suspicious for partial SBO with small BL pleural effusions - initially placed on bowel rest and started on IVF, diet was advanced and pt initially doing well until change of status on 09/26 when stopped passing flatus , small 2-3 watery BM, abd distension, pain increased. Small bowel follow through performed demonstrating SBO with increased pain on exam - Gen Surg consulted, Dr. Thomason, rec initial bowel rest, IVF, cont abx. Initially transitioned to PO; however 09/26 had change in status per below. Also Rec likely need OP GI after approx 2 wks of abx for repeat CT abd/pelvis with oral and IV contrast as well as colonoscopy and ultimately need elective sigmoidectomy with anastomosis in future, apprec recs - Pt taken by Gen surgery to OR for exlap with adhesiolysis and appy, findings of SBO at terminal ileum and diverticulitis without complications, currently POD #2. - BCx x2 sets all NGTD, Abd fluid cx NGTD, will cont to follow - Currently with NG in place, IVF, NPO. Encourage ambulation, pain control with LOAN DOCUMENTATION SPECIALIST - Pt states he is doing well and improved post-op. Will cont to monitor clinical status, good bowel sounds this AM, apprec Gen Surg assistance and adv of diet and appropriate camp control. Consider esposito removal when appropriate #HTN - Continue home meds, not at goal this morning but may be 2/2 post-anesthesia and pain, will increased HCTZ to 25mg daily and cont to monitor. #HLD - continue statin Code: Full PCP: [facility] - [facility] Fluids: LR @ 125cc/hr VTE ppx: lovenox 40 GI ppx: pepcid IV Diet: NPO Disposition: Admitted to inpatient medical for diverticulitis, developed SBO now POD #2 s/p exlap. Will cont bowel rest with NG, IVF, LOAN DOCUMENTATION SPECIALIST, and abx. Encourage ambulation. Apprec Gen surg recs. Addendum - Attending - Attending Attestation Date/Time: 09/29/19 1037 I personally evaluated the patient and discussed the management with Dr. Spaulding. I agree with the History, Examination, Assessment and Plan documented above with any addition or exceptions noted below.
[2019-09-29 06:12] LABS: Hemoglobin 12.8 g/dL (14.0-18.0); Lymphocytes 12 % (21-51); MDiff Complete? YES; Mean Corpuscular HGB CONC 33.7 g/dL (32.0-36.0); Mean Corpuscular Hemoglobin 28.7 pg (27.0-31.0); Mean Platelet Volume 7.6 fL (7.4-10.4); Monocytes 13 % (0-10); Neutrophil 75 % (42-75); Platelet Count 251 thou/uL (130-400); RBC Distribution Width 12.8 % (11.5-14.5); Red Blood Cell (RBC) Count 4.47 mill/uL (4.70-6.10); White Blood Cell (WBC) Count 11.1 thou/uL (4.8-10.8)
[2019-09-29] MEDS: Lactated Ringer's 1,000 ML IV SCH ×2 (06:44→09:57)
[2019-09-29] MEDS: Famotidine/PF 20 mg/2ml Vial SLOW IVP SCH ×2 (09:31→20:27)
[2019-09-29] MEDS: Metoprolol Tartrate 50 MG TAB PO SCH (09:32)
[2019-09-29] MEDS: Saccharomyces boulardii 250 MG CAP PO SCH ×2 (09:32→20:27)
[2019-09-29] MEDS: Hydrochlorothiazide 25 MG TAB PO SCH (09:32)
[2019-09-29] MEDS: Enoxaparin Sodium 40 MG/0.4 ML SYRINGE SC SCH (09:32)
--- NOTE | 2019-09-29 11:35 | PRG ---
DATE OF SERVICE: 09/29/2019 SUBJECTIVE: Bee is a 74-year-old man who is postoperative day #2, status post exploratory laparotomy and lysis of adhesions with appendectomy. The patient is awake and alert today, reports adequate pain control. Urinary output was low overnight, requiring fluid bolus given. OBJECTIVE: VITAL SIGNS: This morning include blood pressure 154/97, pulse 72, respiratory rate is 16, temperature 98.4 degrees Fahrenheit, and oxygen saturation is 94% on room air. HEENT: Reveals pupils equal, round, reactive to light and accommodation. NECK: He has no jugular venous distention noted. HEART: Reveals regular rate and rhythm. No murmurs or gallops auscultated. LUNGS: Clear to auscultation bilaterally. Breathing is regular and nonlabored. ABDOMEN: Soft, moderately distended, but incision is intact, clean, and dry. No peritoneal signs on examination. Marcio-Sharp drain has returned 55 mL of serosanguineous fluid over the last 24 hours. LABORATORY FINDINGS: Today include a CBC with 11,100 white blood cells, hemoglobin and hematocrit of 12.8 and 38.0 respectively. Platelet count is 251,000. Metabolic profile; sodium 137, potassium 3.7, chloride is 104, bicarb is 27, BUN is 26, creatinine is 1.04, glucose is 99, magnesium 2.1, and phosphorus is 3.2. IMPRESSION: 1. Postop day #2, status post exploratory laparotomy. 2. The patient remains hemodynamically stable. PLAN: Increase activity and continue nasogastric tube decompression until return of bowel function. Above findings and plan discussed with the patient and his at bedside. They both indicated understanding of information given. I have answered his questions. Job ID: [id number]
[2019-09-29] MEDS ORDERED: traMADol HCl 50 MG TAB PO PRN ×2 (16:28)
[2019-09-29] MEDS: Atorvastatin Calcium 10 MG TAB PO SCH (20:27)
[2019-09-30] MEDS: Ketorolac Tromethamine 30 MG/ML VIAL IVP SCH (00:59)
[2019-09-30] MEDS: metroNIDAZOLE 500 MG in Premix Bag 1 BAG IVPB SCH ×2 (01:00→08:54)
[2019-09-30] MEDS: Acetaminophen 325 MG TAB PO SCH ×6 (01:00→20:41)
--- NOTE | 2019-09-30 01:59 | PRG ---
DATE OF SERVICE: 09/29/2019 SUBJECTIVE: The patient was seen this evening during rounds. He was standing up at the bedside, getting ready to go for a walk. He reported that he had a bowel movement earlier this evening and he was advanced to a clear liquid diet by Dr. Thomason. Also, Dilaudid LATENT PRINT EXAMINER was discontinued and he was given oral pain medications. The patient does report that his abdomen does feel full since NG tube, that has now been removed. He is not passing flatus at this time. I did instruct him to slow down on the clear liquid diet and ambulate as much as possible. OBJECTIVE: VITAL SIGNS: Temperature 98.5, pulse 76, respirations 16, oxygen saturation 97% on room air, and blood pressure 144/90. GENERAL: Well-appearing elderly male, standing up at bedside with no signs of acute distress. PULMONARY: Equal chest rise and fall. No signs of acute respiratory distress. ABDOMEN: Distended, but still soft and nontender. MONE drain with serosanguineous output. ASSESSMENT: 1. Postop day 2, status post exploratory laparotomy, adhesiolysis, and appendectomy. 2. Sigmoid diverticulitis, improving. 3. Partial small-bowel obstruction, resolved. 4. History of hypertension and hyperlipidemia. PLAN: Continue clear liquid diet but increase ambulating as much as possible. Continue pain control and home medications. Continue IV antibiotics. We are pending return of bowel function before advancing his diet any further. Job ID: [id number]
--- NOTE | 2019-09-30 05:27 | PDOC.FM ---
- Subjective Subjective: Doing very well this morning, no acute events overnight. Yesterday had esposito, NG , MERCHANDISING SPECIALIST, and IVF discontinued. Ambulating frequently. Tolerating clear fluid PO well without n/v. Pain well-controlled with PO meds. In very good spirits and eager for discharge when appropriate. Voiding without difficulty. No fever/ chills, CP, SOB. - Objective MAR Reviewed: Yes Vital Signs & Weight: Vital Signs (12 hours) Temp Pulse Resp BP Pulse Ox 09/30/19 04:00 98.6 F 84 16 134/86 96 09/30/19 00:10 98.7 F 82 16 157/85 H 99 09/29/19 20:00 98.5 F 76 16 144/90 H 97 Weight Admit Weight 100.698 kg Weight 100.698 kg I&O: 09/28/19 09/29/19 09/30/19 06:59 06:59 06:59 Intake Total 520 1920 Output Total 3255 1090 Balance -2735 830 Result Diagrams: 09/29/19 05:20 09/29/19 05:20 Phys Exam - Physical Examination Constitutional: NAD (resting comfortably, good spirits) HEENT: moist MMs Neck: supple Respiratory: no wheezing, no rales, no rhonchi, clear to auscultation bilateral Cardiovascular: RRR, no significant murmur, no rub Gastrointestinal: soft, non-tender, no distention, positive bowel sounds mid-line incision c/d/i, MONE serosanguinous fluid Musculoskeletal: no edema Neurological: moves all 4 limbs Psychiatric: normal affect, A&O x 3 Dx/Plan (1) Partial small bowel obstruction Status: Acute (2) Diverticulitis Code(s): K57.92 - DVTRCLI OF INTEST, PART UNSP, W/O PERF OR ABSCESS W/O BLEED Status: Acute (3) Sepsis Code(s): A41.9 - SEPSIS, UNSPECIFIED ORGANISM Status: Acute (4) HTN (hypertension) Code(s): I10 - ESSENTIAL (PRIMARY) HYPERTENSION Status: Chronic - Plan Plan: 74 AAM with PMHx of HTN and HLD admitted for sepsis 2/2 diverticulitis complicated by SBO now s/p exlap #Sepsis 2/2 Diverticulitis, complicated by SBO now POD#3 s/p exlap, sepsis resolved - Admission CT Abd: non-specific mild free fluid, colonic diverticulosis with mild wall thickening in sigmoid colon. No evidence of perforation. - Repeat CT Abd: suspicious for partial SBO with small BL pleural effusions - initially placed on bowel rest and started on IVF, diet was advanced and pt initially doing well until change of status on 09/26 when stopped passing flatus , small 2-3 watery BM, abd distension, pain increased. Small bowel follow through performed demonstrating SBO with increased pain on exam - Gen Surg consulted, Dr. Thomason, rec initial bowel rest, IVF, cont abx. Initially transitioned to PO; however 3 had change in status per above. Also Rec likely need OP GI after approx 2 wks of abx for repeat CT abd/pelvis with oral and IV contrast as well as colonoscopy and ultimately need elective sigmoidectomy with anastomosis in future, apprec recs - Pt taken by Gen surgery to OR for exlap with adhesiolysis and appy, findings of SBO at terminal ileum and diverticulitis without complications - BCx x2 sets all NGTD, Abd fluid cx NGTD, will cont to follow - Esposito, NG, MERCHANDISING SPECIALIST, IVF discontinued on 3 - tolerating well, advanced to clear liquid diet and PO pain control, will cont to monitor and defer to surgery for continued advancement. Cont to encourage ambulation. MONE in place. #HTN - Continue home meds, increased HCTZ to 25mg daily yesterday, BP mildly improved , some elevation could be secondary to post-op, cont to monitor. #HLD - continue statin Code: Full PCP: [facility] - [facility] Fluids: SL VTE ppx: lovenox 40 GI ppx: pepcid Diet: NPO Disposition: Admitted to inpatient medical for diverticulitis, developed SBO now POD #3 s/p exlap. Advanced diet to clears. Encourage ambulation. Overall improving. Apprec Gen surg recs.
[2019-09-30 06:01] LABS: #Eosinphils 0.1 thou/uL (0.0-0.7); #Lymphocytes 1.2 thou/uL (1.20-3.40); #Monocytes 0.6 thou/uL (0.11-0.59); #Neutrophils 9.1 thou/uL (1.40-6.50); %Basophils 0.3 % (0.0-1.0); %Eosinophils 1.3 % (0.0-10.0); %Lymphocytes 11.2 % (21.0-51.0); %Monocytes 5.3 % (0.0-10.0); Hemoglobin 12.7 g/dL (14.0-18.0); Mean Corpuscular HGB CONC 33.8 g/dL (32.0-36.0); Mean Corpuscular Hemoglobin 28.6 pg (27.0-31.0); Mean Corpuscular Volume 84.6 fL (78.0-98.0); Platelet Count 256 thou/uL (130-400); RBC Distribution Width 12.7 % (11.5-14.5); Red Blood Cell (RBC) Count 4.45 mill/uL (4.70-6.10); White Blood Cell (WBC) Count 11.1 thou/uL (4.8-10.8)
[2019-09-30 06:27] LABS: Anion Gap 12 mmol/L (10-20); BUN (Urea Nitrogen) 18 mg/dL (8.4-25.7); Calc. Creatinine Clearance 98 mL/min (70-130); Calcium 7.7 mg/dL (7.8-10.44); Carbon Dioxide 25 mmol/L (23-31); Chloride 103 mmol/L (98-107); Estimated GFR-MDRD Greater than 90; Glucose 89 mg/dL (83-110); Magnesium 1.8 mg/dL (1.6-2.6); Potassium 3.6 mmol/L (3.5-5.1); Sodium 136 mmol/L (136-145)
[2019-09-30] MEDS ORDERED: Potassium Phosphate 30 MMOL in Sodium Chloride 0.9% 500 ML IVPB SCH (07:45)
[2019-09-30] MEDS ORDERED: Magnesium 2 GM/50 ML 2 GM in Premix Bag 1 BAG IVPB SCH (07:45)
[2019-09-30] MEDS: Enoxaparin Sodium 40 MG/0.4 ML SYRINGE SC SCH (08:52)
[2019-09-30] MEDS: Metoprolol Tartrate 50 MG TAB PO SCH (08:53)
[2019-09-30] MEDS: Famotidine 20 MG TAB PO SCH ×2 (08:53→20:41)
[2019-09-30] MEDS: Hydrochlorothiazide 25 MG TAB PO SCH (08:53)
[2019-09-30] MEDS: Saccharomyces boulardii 250 MG CAP PO SCH ×2 (08:53→20:41)
--- NOTE | 2019-09-30 12:30 | PRG ---
DATE OF SERVICE: SUBJECTIVE: Mr. Gamboa is a 74-year-old man, who is postop day #3, status post exploratory laparotomy, lysis of adhesions, and appendectomy. He reports loose bowel movements and passing flatus. He is tolerating clear liquid diet. Denies any nausea or vomiting. OBJECTIVE: VITAL SIGNS: Today include blood pressure 132/84, pulse 89, respiratory rate 16, temperature 98.6 degrees Fahrenheit, oxygen saturation 100% on room air. HEART: Reveals regular rate and rhythm. LUNGS: Clear to auscultation bilaterally. Breathing, regular and nonlabored. ABDOMEN: Soft, moderately distended. Incision is intact, clean, dry with incisional tenderness to palpation. No peritoneal signs on examination. LABORATORY FINDINGS: CBC with 11,100 white blood cells, hemoglobin and hematocrit 12.7 and 37.7 respectively. Platelet count is at 256,000. Metabolic profile; sodium 136, potassium 3.6, chloride is 103, bicarb is 25, BUN 18, creatinine 0.96, glucose is 89, magnesium 1.8, and phosphorus 3.0. IMPRESSION: Postop day #3, status post exploratory laparotomy. The patient is hemodynamically stable. We will convert antibiotic therapy to p.o. intake. Diet will be advanced to full liquids. The patient is encouraged to continue to ambulate vigorously. He indicates understanding information given. Anticipate discharge within next 24 to 48 hours if tolerating p.o. antibiotics and increasing diet. Job ID: [id number]
--- NOTE | 2019-09-30 12:59 | PRG ---
DATE OF SERVICE: 09/30/2019 See the progress note on the patient by Dr. Dwayne Spaulding, for which I agree. The patient was seen, evaluated, discussed, and examined with the residents by bedside. Still is here, postoperative day 3, status post exploratory lap for bowel obstruction, but doing better. Slowly advancing diet, slowly having gas. He is doing a great job with incentive spirometer and walking. Good pain control. Really no other issues. We are just following him for blood pressure and cholesterol management. Job ID: [id number]
[2019-09-30] MEDS: metroNIDAZOLE 500 MG TAB PO SCH ×2 (13:25→20:41)
[2019-09-30] MEDS: Atorvastatin Calcium 10 MG TAB PO SCH (20:41)
--- NOTE | 2019-09-30 23:08 | PRG ---
DATE OF SERVICE: SUBJECTIVE: The patient was seen this evening during rounds. He was lying in bed comfortably and asleep with no signs of acute distress. Nursing reported no acute events. The patient advanced from a clear liquid to a full liquid diet as having bowel movements and flatus with bowel movements. OBJECTIVE: VITAL SIGNS: Temperature 98.6, pulse 101, respirations 16, oxygen saturation 97% on room air, and blood pressure 121/84. GENERAL: Well-appearing elderly male, lying in bed, asleep, with no signs of acute distress. PULMONARY: Equal chest rise and fall. No signs of acute respiratory distress. ASSESSMENT: 1. Postop day #3 status post exploratory laparotomy, adhesiolysis, and appendectomy for partial small-bowel obstruction. 2. Sigmoid diverticulitis. 3. History of hypertension and hyperlipidemia. PLAN: Continue full liquid diet and Ensure. Continue ambulating as much as possible. Continue p.o. antibiotics. Job ID: [id number]
[2019-10-01] MEDS: Acetaminophen 325 MG TAB PO SCH ×6 (00:34→21:54)
--- NOTE | 2019-10-01 05:38 | PDOC.FM ---
- Subjective Subjective: Doing well this AM, no concerns or complaints. Over the day yesterday he continued to have small BM, passing flatus, no n/v, no pain. No fever/chills, CP , SOB. Ambulating frequently and uses incentive spirometer. He is eager to continue to improve, states he hopes for discharge tomorrow pending his course. - Objective MAR Reviewed: Yes Vital Signs & Weight: Vital Signs (12 hours) Temp Pulse Resp BP Pulse Ox 10/01/19 03:40 98.8 F 95 16 148/80 H 96 09/30/19 23:47 99.1 F 106 H 16 134/84 97 09/30/19 20:09 98.6 F 101 H 16 121/84 97 Weight Admit Weight 100.698 kg Weight 100.698 kg I&O: 09/29/19 09/30/19 10/01/19 06:59 06:59 06:59 Intake Total 3140 2360 Output Total 2670 700 Balance 470 1660 Result Diagrams: 09/30/19 05:51 09/30/19 05:51 Phys Exam - Physical Examination Constitutional: NAD (resting comfortably, good spirits, very polite) HEENT: moist MMs Neck: supple Respiratory: no wheezing, no rales, no rhonchi, clear to auscultation bilateral Cardiovascular: RRR, no significant murmur, no rub Gastrointestinal: soft, non-tender, no distention, positive bowel sounds midline inicision, c/d/i, no erythema or drainage. Musculoskeletal: no edema Neurological: moves all 4 limbs Psychiatric: normal affect, A&O x 3 Dx/Plan (1) Partial small bowel obstruction Status: Acute (2) Diverticulitis Code(s): K57.92 - DVTRCLI OF INTEST, PART UNSP, W/O PERF OR ABSCESS W/O BLEED Status: Acute (3) Sepsis Code(s): A41.9 - SEPSIS, UNSPECIFIED ORGANISM Status: Acute (4) HTN (hypertension) Code(s): I10 - ESSENTIAL (PRIMARY) HYPERTENSION Status: Chronic - Plan Plan: 74 AAM with PMHx of HTN and HLD admitted for sepsis 2/2 diverticulitis complicated by SBO now s/p exlap #Sepsis 2/2 Diverticulitis, complicated by SBO now POD#4 s/p exlap, sepsis resolved - Admission CT Abd: non-specific mild free fluid, colonic diverticulosis with mild wall thickening in sigmoid colon. No evidence of perforation. - Repeat CT Abd: suspicious for partial SBO with small BL pleural effusions - initially placed on bowel rest and started on IVF, diet was advanced and pt initially doing well until change of status on 09/26 when stopped passing flatus , small 2-3 watery BM, abd distension, pain increased. Small bowel follow through performed demonstrating SBO with increased pain on exam - Gen Surg consulted, Dr. Thomason, rec initial bowel rest, IVF, cont abx. Initially transitioned to PO; however 3 had change in status per above. Also Rec likely need OP GI after approx 2 wks of abx for repeat CT abd/pelvis with oral and IV contrast as well as colonoscopy and ultimately need elective sigmoidectomy with anastomosis in future, apprec recs - Pt taken by Gen surgery to OR for exlap with adhesiolysis and appy, findings of SBO at terminal ileum and diverticulitis without complications - BCx x2 sets all NG final, Abd fluid cx NGTD - Ugarte, NG, DADO OPERATOR, IVF discontinued on 3 - tolerating well, now advanced to full liquid diet and PO pain control with PO abx, still tolerating very well. Will cont to monitor and defer to surgery for continued advancement. Cont to encourage ambulation. After discussion with pt, anticipate discharge tomorrow pending clinical course. #HTN - Continue home meds, increased HCTZ to 25mg daily during hospitalization. BP improved this AM, some elevation could be secondary to post-op, cont to monitor. #HLD - continue statin Code: Full PCP: [facility] - [facility] Fluids: SL VTE ppx: lovenox 40 GI ppx: pepcid Diet: Full liquid Disposition: Admitted to inpatient medical for diverticulitis, developed SBO now POD #4 s/p exlap. Advanced diet to full liquid. Encourage ambulation. Overall improving. Apprec Gen surg recs. Anticipate discharge tomorrow.
[2019-10-01] MEDS: Hydrochlorothiazide 25 MG TAB PO SCH (08:38)
[2019-10-01] MEDS: Enoxaparin Sodium 40 MG/0.4 ML SYRINGE SC SCH (08:38)
[2019-10-01] MEDS: Saccharomyces boulardii 250 MG CAP PO SCH ×2 (08:38→21:54)
[2019-10-01] MEDS: Famotidine 20 MG TAB PO SCH ×2 (08:38→21:54)
[2019-10-01] MEDS: metroNIDAZOLE 500 MG TAB PO SCH ×3 (08:38→21:54)
[2019-10-01] MEDS: Metoprolol Tartrate 50 MG TAB PO SCH (08:38)
--- NOTE | 2019-10-01 09:53 | PRG ---
DATE OF SERVICE: 10/01/2019 SUBJECTIVE: The patient remains on the surgical floor. The patient is postoperative day #4 status post exploratory laparotomy, lysis of adhesions, and appendectomy. The patient continues to have loose bowel movements and passing flatus after the loose bowel movements. The patient is tolerating a full liquid diet, denies any nausea or vomiting, but does report some abdominal bloating sensation. The patient continues to ambulate frequently without any difficulty. OBJECTIVE: VITAL SIGNS: Temperature 98.6, pulse 92, respirations 18, SpO2 of 97% on room air, blood pressure 131/80. GENERAL: Well-appearing elderly male, sitting up in hospital bed, in no acute distress. LUNGS: Clear bilateral. No respiratory distress. HEART: Regular rate. Regular rhythm. ABDOMEN: Soft, distended. Incision is intact, clean, and dry. Incisional tenderness to palpation. No peritoneal signs. Active bowel sounds. Right MONE drain. Total output today 40 mL. NEUROLOGIC: No focal deficits. LABORATORY DATA: No new labs to evaluate today. IMPRESSION: Postoperative day #4 status post exploratory laparotomy. PLAN: Continue to monitor bowel function. Continue to have the patient ambulate frequently. Continue antibiotics p.o. Continue full liquid diet today as the patient has been bloated. We will attempt to increase diet tomorrow if bloating has improved and the patient continues to have good bowel function. The plan was discussed with Dr. Thomason, who agrees. Job ID: [id number]
--- NOTE | 2019-10-01 11:33 | PRG ---
DATE OF SERVICE: 10/01/2019 Please see note from Dr. Spaulding, for which I agree. The patient was seen, evaluated, discussed, and examined with the residents by bedside. This gentleman is improving from diverticulitis and then exploratory lap from a small bowel obstruction. He had a bowel movement. He is eating better, still just liquids though, but full liquids and advancing from there and likely will be able to be discharged tomorrow abdominal exam. Job ID: [id number]
[2019-10-01] MEDS: Atorvastatin Calcium 10 MG TAB PO SCH (21:54)
[2019-10-02] MEDS: Acetaminophen 325 MG TAB PO SCH ×4 (00:31→13:13)
[2019-10-02 05:39] LABS: Anion Gap 10 mmol/L (10-20); BUN (Urea Nitrogen) 10 mg/dL (8.4-25.7); Calc. Creatinine Clearance 95 mL/min (70-130); Calcium 8.3 mg/dL (7.8-10.44); Carbon Dioxide 26 mmol/L (23-31); Chloride 103 mmol/L (98-107); Estimated GFR-MDRD 90; Glucose 116 mg/dL (83-110); Magnesium 1.5 mg/dL (1.6-2.6); Phosphorus 3.2 mg/dL (2.3-4.7); Potassium 3.9 mmol/L (3.5-5.1); Sodium 135 mmol/L (136-145)
--- NOTE | 2019-10-02 05:43 | PRG ---
DATE OF SERVICE: 10/01/2019 SUBJECTIVE: Patient was seen this evening, lying in bed, asleep, with no signs of acute distress. Nursing reported no acute events. OBJECTIVE: VITAL SIGNS: Patient is afebrile and hemodynamically stable. GENERAL: Well-appearing elderly male, lying in bed, asleep, in no signs of acute distress. ASSESSMENT: 1. Sigmoid diverticulitis. 2. Partial small bowel obstruction, status post exploratory laparotomy, adhesional lysis and appendectomy. 3. History of hypertension and hyperlipidemia. 4. Continue full liquid diet with Ensure. Continue physical and occupational therapy, ambulating as much as possible. Continue oral antibiotics. Job ID: [id number]
[2019-10-02 06:03] LABS: Eosinophils 1 % (0-10); Hemoglobin 12.8 g/dL (14.0-18.0); Lymphocytes 8 % (21-51); MDiff Complete? YES; Mean Corpuscular HGB CONC 33.2 g/dL (32.0-36.0); Mean Corpuscular Hemoglobin 28.3 pg (27.0-31.0); Mean Corpuscular Volume 85.2 fL (78.0-98.0); Mean Platelet Volume 7.3 fL (7.4-10.4); Monocytes 4 % (0-10); Neutrophil 87 % (42-75); Platelet Count 350 thou/uL (130-400); RBC Distribution Width 12.8 % (11.5-14.5); Red Blood Cell (RBC) Count 4.52 mill/uL (4.70-6.10); White Blood Cell (WBC) Count 13.4 thou/uL (4.8-10.8)
--- NOTE | 2019-10-02 06:24 | PDOC.FM ---
- Subjective Subjective: Doing well this morning. Ambulating frequently. Tolerating full liquid diet without n/v. Mild abd bloating. No pain. Passing small BM and flatus. No acute events overnight. No fever/chills, CP, SOB. - Objective MAR Reviewed: Yes Vital Signs & Weight: Vital Signs (12 hours) Temp Pulse Resp BP Pulse Ox 10/02/19 05:27 98.5 F 92 16 123/72 96 10/02/19 00:31 98.4 F 86 16 142/82 H 97 10/01/19 21:58 98.6 F 88 16 146/91 H 97 Weight Admit Weight 100.698 kg Weight 100.698 kg I&O: 09/30/19 10/01/19 10/02/19 06:59 06:59 06:59 Intake Total 3140 2360 1480 Output Total 2670 700 70 Balance 470 1660 1410 Result Diagrams: 10/02/19 04:46 10/02/19 04:47 Phys Exam - Physical Examination Constitutional: NAD (resting comfortably, in good spirits) HEENT: moist MMs Neck: supple Respiratory: no wheezing, no rales, no rhonchi, clear to auscultation bilateral Cardiovascular: RRR, no significant murmur, no rub Gastrointestinal: soft, non-tender, positive bowel sounds Mildly distended. Incision midline c/d/i Musculoskeletal: no edema Neurological: moves all 4 limbs Psychiatric: normal affect, A&O x 3 Dx/Plan (1) Partial small bowel obstruction Status: Acute (2) Diverticulitis Code(s): K57.92 - DVTRCLI OF INTEST, PART UNSP, W/O PERF OR ABSCESS W/O BLEED Status: Acute (3) Sepsis Code(s): A41.9 - SEPSIS, UNSPECIFIED ORGANISM Status: Acute (4) HTN (hypertension) Code(s): I10 - ESSENTIAL (PRIMARY) HYPERTENSION Status: Chronic - Plan Plan: 74 AAM with PMHx of HTN and HLD admitted for sepsis 2/2 diverticulitis complicated by SBO now s/p exlap #Sepsis 2/2 Diverticulitis, complicated by SBO now POD#5 s/p exlap, sepsis resolved - Admission CT Abd: non-specific mild free fluid, colonic diverticulosis with mild wall thickening in sigmoid colon. No evidence of perforation. - Repeat CT Abd: suspicious for partial SBO with small BL pleural effusions - initially placed on bowel rest and started on IVF, diet was advanced and pt initially doing well until change of status on 09/26 when stopped passing flatus , small 2-3 watery BM, abd distension, pain increased. Small bowel follow through performed demonstrating SBO - Gen Surg consulted, Dr. Thomason, rec initial bowel rest, IVF, cont abx. Initially transitioned to PO; however 09/26 had change in status per above. Also Rec likely need OP GI after approx 2 wks of abx for repeat CT abd/pelvis with oral and IV contrast as well as colonoscopy and ultimately need elective sigmoidectomy with anastomosis in future, apprec recs - Pt taken by Gen surgery to OR for exlap with adhesiolysis and appy, findings of SBO at terminal ileum and diverticulitis without complications - BCx x2 sets all NG final, Abd fluid cx NGTD - Ugarte, NG, LINE CAMERA OPERATOR, IVF discontinued on 09/28 - tolerating well, now advanced to full liquid diet and PO pain control with PO abx, still tolerating very well. Mild abd distension. Will cont to monitor and defer to surgery for continued advancement. Cont to encourage ambulation. #HTN - Continue home meds, increased HCTZ to 25mg daily during hospitalization. BP improved this AM, some elevation could be secondary to post-op, cont to monitor. Will need OP monitoring. #Hypomag - 1.5 this AM. Replace and monitor #HLD - continue statin Code: Full PCP: [facility] - [facility] Fluids: SL VTE ppx: lovenox 40 GI ppx: pepcid Diet: Full liquid Disposition: Admitted to inpatient medical for diverticulitis, developed SBO now POD #5 s/p exlap. Advanced diet to full liquid. Encourage ambulation. Overall improving. Apprec Gen surg recs. Approaching discharge pending gen surg recs and clinical course. Addendum - Attending - Attending Attestation Date/Time: 10/02/19 4148 I personally evaluated the patient and discussed the management with Dr. Spaulding. I agree with the History, Examination, Assessment and Plan documented above with any addition or exceptions noted below.
[2019-10-02] MEDS ORDERED: Magnesium Sulfate 3 GM in Sodium Chloride 0.9% 100 ML IVPB SCH (08:00)
[2019-10-02] MEDS: Hydrochlorothiazide 25 MG TAB PO SCH (08:32)
[2019-10-02] MEDS: Famotidine 20 MG TAB PO SCH (08:32)
[2019-10-02] MEDS: metroNIDAZOLE 500 MG TAB PO SCH (08:32)
[2019-10-02] MEDS: Saccharomyces boulardii 250 MG CAP PO SCH (08:33)
[2019-10-02] MEDS: Metoprolol Tartrate 50 MG TAB PO SCH (08:33)
[2019-10-02] MEDS: Enoxaparin Sodium 40 MG/0.4 ML SYRINGE SC SCH (08:37)
[2019-10-02 11:53] VITALS: BP 124/87; TEMP 98.3
--- NOTE | 2019-10-02 13:52 | PRG ---
DATE OF SERVICE: 10/02/2019 SUBJECTIVE: The patient remains on the surgical floor, awake, alert, in no distress. The patient had no overnight events. The patient continues to ambulate frequently without any difficulty. The patient is tolerating a full liquid diet. The patient voices no complaints or concerns at this time. The patient's MONE drain was discontinued and a bandage was placed. OBJECTIVE: VITAL SIGNS: Blood pressure 122/86, temperature 98.8, pulse 100, respirations 18, SpO2 of 95% on room air. GENERAL: Elderly male, awake, alert, in no distress. PULMONARY: Equal chest rise and fall, bilateral breath sounds clear. ABDOMEN: Soft, nontender, mildly distended, no peritoneal signs, midline incision well approximated with no signs of infection. ASSESSMENT: 1. Sigmoid diverticulitis. 2. Small bowel obstruction, status post exploratory laparotomy, adhesional lysis and appendectomy. 3. History of hypertension and hyperlipidemia. PLAN: Increase diet to regular and continue Ensure. Continue to ambulate frequently. No heavy lifting more than 20 pounds for 2 weeks. The patient is to continue oral antibiotics for 7 days total. The patient is also to continue Florastor for one month. The patient is ready for discharge at this time. Surgery will sign off. Let us know if you have any questions. Job ID: [id number]
--- NOTE | 2019-10-02 23:21 | DIS ---
DATE OF ADMISSION: 09/21/2019 DATE OF DISCHARGE: 10/02/2019 RESIDENT: Dwayne Spaulding MD ADMITTING ATTENDING: Saravanan Salas MD DISCHARGE ATTENDING: Estevan Clancy MD. CONSULTS: General Surgery, Dr. Thomason. PROCEDURES: 1. Chest x-ray on 09/21/2019, demonstrating low lung volumes. No definitive acute abnormality. 2. Abdomen and pelvis CT on 09/21/2019, demonstrating nonspecific mild free fluid in the abdomen and pelvis with some mild changes involving the omentum. Chronic diverticulosis with mild suggested wall thickening involving the sigmoid colon, a component of mild colitis cannot be entirely excluded as well as a too small to characterize right hepatic lobe hypodensity. 3. Abdomen and pelvis CT on 09/24/2019, demonstrating suspicious for partial small bowel obstruction with small pleural effusions. 4. Abdominal x-ray on 09/27/2019, demonstrating continued evidence of high-grade small bowel obstruction. 5. Small bowel follow-through on 09/27/2019, suggested findings compatible with small bowel obstruction. 6. Ex lap with adhesiolysis and appendectomy performed on 09/27/2019, by Dr. Thomason. PRIMARY DIAGNOSIS: Sepsis secondary to diverticulitis complicated by a small bowel obstruction status post ex lap. SECONDARY DIAGNOSES: 1. Hypertension. 2. Hyperlipidemia. DISCHARGE MEDICATIONS: 1. Metoprolol hydrochlorothiazide 100 mg/25 mg half tablet p.o. daily. 2. Lipitor 10 mg p.o. at bedtime. 3. Levaquin 500 mg p.o. daily at 0600 x7 days. 4. Flagyl 500 mg p.o. t.i.d. x7 days. 5. Florastor 250 mg p.o. b.i.d. x30 days. HISTORY OF PRESENT ILLNESS AND HOSPITAL COURSE: The patient is a very pleasant 74-year-old male who presented to the emergency department with complaint of abdominal pain started earlier on the day of admission here. Pain worst in his lower abdomen and constant since about 5:00 am in the morning. He had some associated nausea and vomiting, those were nonbloody and nonbilious. The patient states that he had a colonoscopy 3 or 4 years ago that showed polyps that were noncancerous as well as diverticulosis. He endorsed fevers, chills. Denies any urinary symptoms, diarrhea or constipation. Had a bowel movement earlier the morning of admission that was normal. He denied any chest pain, palpitations, shortness of breath, lower extremity edema, vision changes, changes in his appetite. In the emergency department, he was given 1 L normal saline bolus, Zosyn, morphine, Zofran. He was admitted for sepsis secondary to diverticulitis. The patient had initial CT abdomen as per above and was initially placed on bowel rest and started on IV fluids. Over the subsequent first days of hospitalization, his diet was slowly advanced and the patient was continued on IV antibiotics. The patient was initially doing well, passing gas and having small bowel movements until 09/26, when he began to stop passing any flatus, having very small watery bowel movements, increased abdominal distention and discomfort and increased pain. On that day, a KUB and small bowel follow-through were obtained that showed a small bowel obstruction. General Surgery, Dr. Thomason, was consulted earlier in the hospitalization and had initially recommended bowel rest, IV fluids, and continue antibiotics. The patient was initially transitioned to p.o. However, due to this acute change on 09/26 on repeat imaging, the patient was taken to the OR on , for ex lap and adhesiolysis. The patient tolerated the procedure very well. Over the subsequent days, postoperatively, the patient did very well. He initially was placed n.p.o. with NG tube, Ugarte catheter, MONE drain, and IV fluids. Throughout the subsequent days, the patient began to pass flatus and having small bowel movements. Subsequently, the NG tube and Ugarte were removed and the patient was able to void well. The patient did not have any return of nausea or vomiting. His diet was slowly advanced. At this point, the patient was tolerating a regular diet on the day of discharge. The patient was initially on a PLUG MAKER pain pump, this was transitioned to oral medications. On the day of discharge, the patient was largely pain free. The patient's blood cultures were followed and all were no growth final, and abdominal fluid culture was obtained during surgery that was also no growth to date at time of discharge. The patient was doing very well on the day of discharge, he was ambulating well and he is using incentive spirometry postoperatively. General Surgery had recommended that the patient to have outpatient GI followup in approximately 2 weeks after discharge for possible endoscopy and stated the patient may ultimately need an elective sigmoidectomy if his diverticulitis continues. He also will follow up with General Surgery within 2 weeks of discharge for postop care. The patient was doing very well, very near his baseline. His incision was healing well, was clean, dry, and intact. The patient was very eager for discharge. Regarding the patient's chronic medical conditions, his hyperlipidemia is controlled with his atorvastatin and his hypertension was controlled with his home blood pressure medications. During his hospitalization, the hydrochlorothiazide was uptitrated to 25 mg daily with improvement of blood pressure. The patient's elevation in blood pressure was likely secondary to his postop changes to anesthesia. Thus, his home medications were restarted at the time of discharge and the patient will need continued outpatient followup for this and may consider re-increase of hydrochlorothiazide to 25 mg daily as an outpatient. At time of discharge, the patient was doing very well. Discharge plan discussed with patient at bedside who voiced agreement and understanding of discharge plan. All questions were answered appropriately. The patient was very eager for discharge. Of note, the patient also had a mild hypomagnesemia of 1.5 on the day of discharge, it was replaced, however, recommend repeat labs at PCP followup. DISPOSITION: Stable. DISCHARGE INSTRUCTIONS: 1. Location: Home. 2. Diet: Regular as tolerated. 3. Activity: As tolerated. 4. Followup: The patient should follow up with their primary care physician at [facility] within 1 week of discharge. The patient should also follow up with General Surgery in 2 weeks as directed. Job ID: [id number] MTDD
--- NOTE | 2019-10-03 22:11 | PQF ---
TONI WESTON JASON MD *r* [id number] CLINICAL DOCUMENTATION CLARIFICATION FORM: POST DISCHARGE Addendum to original discharge summary date: ____ Late entry note date: __ DATE: 10/03/2019 ATTN:LETICIA BOURNE MD Please exercise your independent, professional judgment in responding to the clarification form. Clinical indicators are provided on the bottom of this form for your review Please check appropriate box(s): Kindly clarify the diverticulitis; [ X ] Diverticulitis is infectious [ ] Diverticulitis is noninfectious [ ] Other diagnosis [ ] Unable to determine For continuity of documentation, please document condition throughout progress notes and discharge summary. Thank You. CLINICAL INDICATORS - SIGNS / SYMPTOMS / LABS Sepsis secondary to diverticulitis complicated by a small bowel obstruction - Documented in discharge summary on 10/01 by Dwayne Spaulding MD Small bowel follow-through on 09/26 suggested findings compatible with small bowel obstruction-Documented in discharge summary on 10/01 by Dwayne Spaulding MD The patient's blood cultures were followed and all were no growth final and abdominal fluid culture obtained during surgery that was also no growth to date at time of discharge--Documented in discharge summary on 10/01 by Dwayne Spaulding MD Admission CT AD: Non-specific mild free fluid colonic diverticulosis with mild wall thickening in sigmoid colon. No evidence of perforation-Documented in family medicine progress note on 10/01 by Dwayne Spaulding MD RISK FACTORS Sepsis secondary to diverticulitis complicated by a small bowel obstruction - Documented in discharge summary on 10/01 by Dwayne Spaulding MD TREATMENTS: Ex lab with adhesiolysis and appendectomy performed on 09/[address] Thomason-- Documented in discharge summary on 10/01 by Dwayne Spaulding MD Initially placed on bowel rest and started on IVF, diet was advanced-Documented in family medicine progress note on 10/01 by Dwayne Spaulding MD Continue Abx-Documented in family medicine progress note on 10/01 by Dwayne Spaulding MD Rocephine 2 gm IV-Documented in medication snapshot [employer] Winform Viewer (This form is maintained as a part of the permanent medical record) 2014 [employer]. All Rights Reserved [email or web address]
== END 2019-10-02 13:33 | disposition home or self-care (01) | DRG 854 ==
LOC: ERS 11:13 → ERHOLD 13:14 → T4-B 14:36 → SJJU 09-27 23:21
PROVIDERS: ADMIT Family Medicine; ATTEND Family Medicine
PROC: 0DTJ0ZZ Resection of Appendix, Open Approach (ICD-10-PCS; principal; 2019-09-27)
PROC: 0DN80ZZ Release Small Intestine, Open Approach (ICD-10-PCS; 2019-09-27)
DX: A41.9 Sepsis, unspecified organism (principal); K57.32 Diverticulitis of large intestine without perforation or abscess without bleeding; J90 Pleural effusion, not elsewhere classified; K56.51 Intestinal adhesions [bands], with partial obstruction; I10 Essential (primary) hypertension; E78.5 Hyperlipidemia, unspecified; K37 Unspecified appendicitis; Z98.890 Other specified postprocedural states
CPT/HCPCS: 36415; 71045; 74019; 74177; 74250; 80048; 80053; 81003; 83605; 83690; 83735; 84100; 84145; 85007; 85025; 85027; 87040; 87070; 87076; 87086; 87205; 88304; 93005; 96365; 96375; J0360; J0694; J0696; J1100; J1200; J1650; J1885; J1956; J2250; J2270; J2405; J2543; J2704; J3010; J3475; J3490; J7050; Q9967; S0028

== ENCOUNTER 2020-12-19 10:53 | Outpatient (CLI) | payer MEDICARE, OTHER | END 2020-12-19 10:54 | disposition home or self-care (01) | LOC: BICCT 10:53 | PROVIDERS: ATTEND Family Medicine | DX: J34.89 Other specified disorders of nose and nasal sinuses (principal) ==